=== PATIENT | female | born 1940 | race Caucasian/White ===

== ENCOUNTER 2016-11-07 23:44 | Inpatient (IN) | payer OTHER ==
[~2016-11-07] VITALS: Ht 157.5 cm; Wt 68.3 kg
[~2016-11-07 23:44] MED LIST: AMIO200T2 PO; AMIO200T46 PO; AMLO5TAB4 PO; ASPI81TA3 PO; ATOR20TA38 PO; HYDR-3498 PO; MECL25TA2 PO; Metformin Hcl PO; NATE60TA8 PO; PANT40TA3 PO; SITA100T8 PO; VALS160T20 PO; WARF5TAB72 PO; ZOLP5TAB6 PO
[2016-11-07 23:55] VITALS: Ht 157.5 cm; Wt 68.3 kg
[2016-11-08] MEDS ORDERED: ASPIRIN 81 MG TAB PO ONE (01:30)
[2016-11-08 02:15] LABS: ADD SCAN DIFF NO
[2016-11-08 02:19] LABS: BASOPHILS % 0.3 % (0.0-2.0); EOSINOPHILS # 0.3 10^3/ul (0.0-0.5); HEMATOCRIT 37.8 % (37.0-47.0); HEMOGLOBIN 12.8 g/dl (12.0-16.0); LYMPHOCYTES # 2.2 10^3/ul (0.8-2.9); MEAN CORPUSCULAR HEMOGLOBIN 30.7 pg (29.0-33.0); MEAN CORPUSCULAR HGB CONC 33.9 g/dl (32.0-37.0); MEAN CORPUSCULAR VOLUME 90.6 fl (82.0-101.0); MEAN PLATELET VOLUME 9.7 fl (7.4-10.4); MONOCYTE # 0.9 10^3/ul (0.3-0.9); NEUTROPHIL # 6.9 10^3/ul (1.6-7.5); NEUTROPHILS % 66.3 % (39.0-77.0); PLATELET COUNT 255 10^3/UL (140-415); RED BLOOD COUNT 4.17 10^6/ul (4.20-5.40); RED CELL DISTRIBUTION WIDTH 13.1 % (11.5-14.5); WHITE BLOOD COUNT 10.3 10^3/ul (4.8-10.8)
--- NOTE | 2016-11-08 02:26 | RADRPT ---
PROCEDURE: XR Chest. CLINICAL INDICATION: Chest Pain. TECHNIQUE: Single frontal view of the chest was obtained COMPARISON: 08/17/2014. FINDINGS: Cardiomegaly. Mild pulmonary vascular congestion. There is no pleural effusion or pneumothorax. IMPRESSION: Cardiomegaly and mild pulmonary vascular congestion. RPTAT: [facility] Physician [place] Date Time Electronically viewed and signed by Luis Segura Physician on 11/08/2016 02:25 RS/
[2016-11-08 02:36] LABS: POTASSIUM 4.6 mmol/L (3.5-5.1)
[2016-11-08 02:39] LABS: CREATININE 0.58 mg/dl (0.44-1.00)
[2016-11-08 02:40] LABS: CALCIUM 9.7 mg/dl (8.4-10.2)
[2016-11-08 02:51] LABS: TROPONIN-I 0.016 ng/ml (0.00-0.12)
[2016-11-08 03:14] LABS: INR 0.98
[2016-11-08 03:15] LABS: PARTIAL THROMBOPLASTIN TIME 32.8 Sec (25.0-35.0)
--- NOTE | 2016-11-08 05:43 | ERA ---
ER Documentation Chief Complaint Date/Time DATE: 11/08/16 TIME: 05:39 Chief Complaint pressure like chest pain since 2 hours ago HPI This 76-year-old female presents with left-sided pressure-like chest pain that began suddenly 2 hours ago. He was coming by some shortness of breath as well as mild nausea. She states that this feels like the pain she had when she had her heart attack. She took nitroglycerin which led to reduction in the pain. She states that her chest pain is now mild still pressure-like. ROS All systems reviewed and are negative except as per history of present illness. Medications Home Meds Active Scripts Amlodipine Besylate* (Norvasc*) 5 Mg Tablet, 5 MG PO BID for 30 Days, TAB Prov:JAMAL DIAL NP 08/11/14 Warfarin Sodium* (Coumadin*) 5 Mg Tablet, 5 MG PO DAILY for 5 Days, TAB Prov:JAMAL DIAL NP 08/11/14 Valsartan* (Diovan*) 160 Mg Tab, 160 MG PO DAILY for 30 Days Prov:JAMAL DIAL NP 08/11/14 Sitagliptin* (Januvia*) 100 Mg Tab, 100 MG PO AC BREAKFAST for 30 Days Prov:JAMAL DIAL NP 08/11/14 Nateglinide* (Starlix*) 60 Mg Tab, 60 MG PO AC MEALS for 30 Days Prov:JAMAL DIAL NP 08/11/14 [Metformin Hcl] 500 MG TAB No Conflict Check, 1000 MG PO WITH BREAKFAST DINNE for 30 Days, TAB Prov:JAMAL DIAL NP 08/11/14 Meclizine Hcl* (Antivert*) 25 Mg Tab, 25 MG PO TID Y for DIZZINESS, #20 Prov:JAMAL DIAL NP 08/11/14 Hydrocodone Bit/Acetaminophen (Anexsia 5-325 Mg Tablet) 1 Tab Tab, 1 TAB PO Q4H Y for PAIN LEVEL 4-6, #30 Prov:JAMAL DIAL NP 08/11/14 Atorvastatin Calcium* (Atorvastatin Calcium*) 20 Mg Tab, 40 MG PO HS for 30 Days Prov:JAMAL DIAL NP 08/11/14 Amiodarone Hcl* (Amiodarone Hcl*) 200 Mg Tablet, 200 MG PO DAILY for 30 Days, TAB Prov:JAMAL DIAL NP 08/11/14 Amiodarone Hcl* (Cordarone*) 200 Mg Tab, 200 MG PO BID for 3 Days, TAB Prov:JAMAL DIAL SUPPLY PERSON 08/11/14 Aspirin (Aspirin) 81 Mg Chew, 81 MG PO DAILY for 30 Days Prov:JAMAL DIAL SUPPLY PERSON 08/11/14 Reported Medications Zolpidem Tartrate* (Zolpidem Tartrate*) 5 Mg Tablet, 5 MG PO HS Y, TAB 07/26/14 Pantoprazole* (Protonix*) 40 Mg Tablet.dr, 40 MG PO DAILY, TAB 07/26/14 Allergies Allergies: Coded Allergies: No Known Allergy (Unverified , 08/10/14) PMhx/Soc History of Surgery: Yes (s/p CABG) Anesthesia Reaction: No Hx Neurological Disorder: No Hx Respiratory Disorders: No Hx Cardiac Disorders: Yes Hx Psychiatric Problems: No Hx Miscellaneous Medical Probl: Yes (suspected vertigo, atrial fibrillation, HTN, DM, dyslipidemia, [place], diabetes) Hx Alcohol Use: No Hx Substance Use: No Hx Tobacco Use: No Smoking Status: Never smoker Physical Exam Vitals Vital Signs Date Time Temp Pulse Resp B/P Pulse Ox O2 Delivery O2 Flow Rate FiO2 11/08/16 05:27 98.4 58 16 159/72 98 Room Air 11/08/16 04:38 56 16 162/75 97 Room Air 11/08/16 03:00 98.2 60 16 152/77 100 Room Air 11/08/16 01:19 98.2 59 16 157/78 100 Room Air 11/07/16 23:55 98.6 75 20 198/79 99 Physical Exam Const: [] No distress Head: Atraumatic Eyes: Normal Conjunctiva ENT: Normal External Ears, Nose and Mouth. Neck: Full range of motion..~ No meningismus. Resp: Clear to auscultation bilaterally Cardio: Regular rate and rhythm, no murmurs Abd: Soft, non tender, non distended. Normal bowel sounds Skin: No petechiae or rashes Ext: No cyanosis, or edema Neur: Awake and alert and oriented 3, no focal deficits Psych: Normal Mood and Affect Result Diagram: 11/08/16 0130 11/08/16 0130 Results 24 hrs Laboratory Tests Test 11/08/16 01:30 11/08/16 02:36 Anion Gap 20 Basophils # 0.010^3/ul Basophils % 0.3% Blood Urea Nitrogen 12mg/dl Calcium Level 9.7mg/dl Carbon Dioxide Level 24mmol/L Chloride Level 93mmol/L Creatinine 0.58mg/dl Eosinophils # 0.310^3/ul Eosinophils % 3.0% Glucose Level 135mg/dl Hematocrit 37.8% Hemoglobin 12.8g/dl Lymphocytes # 2.210^3/ul Lymphocytes % 21.0% Mean Corpuscular Hemoglobin 30.7pg Mean Corpuscular Hemoglobin Concent 33.9g/dl Mean Corpuscular Volume 90.6fl Mean Platelet Volume 9.7fl Monocytes # 0.910^3/ul Monocytes % 9.0% Neutrophils # 6.910^3/ul Neutrophils % 66.3% Nucleated Red Blood Cells # 0.010^3/ul Nucleated Red Blood Cells % 0.0/100WBC Platelet Count 84563^3/UL Potassium Level 4.6mmol/L Red Blood Count 4.1710^6/ul Red Cell Distribution Width 13.1% Sodium Level 132mmol/L Troponin I 0.016ng/ml White Blood Count 10.310^3/ul Activated Partial Thromboplast Time 32.8Sec INR International Normalized Ratio 0.98 Prothrombin Time 13.0Sec Prothrombin Time Ratio 1.0 Current Medications Medications (Trade) Dose Ordered Sig/Juliette Route PRN Reason Start Time Stop Time Status Last Admin Dose Admin Aspirin (Aspirin) 324 mg ONCE ONCE PO 11/08/16 01:30 11/08/16 01:31 DC 11/08/16 01:39 Procedures/MDM Acute chest pain that feels like prior heart attack. Patient with multiple risk factors for acute coronary syndrome. He was given aspirin emergency room as well. She has ongoing chest pain although she said it is greatly improved from before she took the nitroglycerin. She will be admitted for further trending of troponins and cardiac monitoring as well as cardiac consult and any advanced testing may be necessary. Patient Dr. Bard bravo was admitted the patient before for admission. Still waiting content architect back for admission. EKG interpretation: Normal sinus rhythm, rate of 61, left axis deviation, no ST- T wave changes concerning for acute ischemia monitor and storage bin tender interpretation: Normal sinus rhythm without arrhythmia Chest x-ray interpretation: Cardiomegaly and mild pulmonary vascular congestion , no pneumothorax, no infiltrates, no fractures. Departure Diagnosis: Primary Impression: Chest pain Additional Impression: Hyponatremia Condition: Stable BREN EARLY DO Nov 08, 2016 05:43
[2016-11-08] MEDS ORDERED: ACETAMINOPHEN 325 MG TAB PO PRN (06:00)
[2016-11-08] MEDS ORDERED: ONDANSETRON 4 MG INJ IV PRN (06:00)
[2016-11-08 08:37] LABS: CREATINE KINASE 46 IU/L (23-200)
[2016-11-08 08:47] LABS: CK-MB 0.53 ng/ml (0.0-2.4)
[2016-11-08 08:51] LABS: TROPONIN-I < 0.012 ng/ml (0.00-0.12)
[2016-11-08 12:24] VITALS: TEMP 97.7
[2016-11-08 13:30] VITALS: BP 180/72; PULSE 67; RESP 16
[2016-11-08 16:00] VITALS: PULSE 59
[2016-11-08] MEDS ORDERED: HYDROCODONE/APAP (5/325) TAB PO PRN (16:00)
[2016-11-08] MEDS ORDERED: GLUCOSE GEL 15 GRAM TUBE PO PRN ×2 (16:30)
[2016-11-08] MEDS ORDERED: GLUCOSE GEL 15 GRAM TUBE BUCCAL PRN (16:30)
[2016-11-08] MEDS ORDERED: hydrALAzine 20 MG INJ IV PRN (16:30)
[2016-11-08] MEDS ORDERED: GLUCAGON 1 MG INJ IM PRN (16:30)
[2016-11-08] MEDS ORDERED: DEXTROSE 50% 50 ML SYRINGE IV PRN ×2 (16:30)
[2016-11-08] MEDS: metFORMIN 500 MG TAB PO SCH (17:16)
[2016-11-08] MEDS: ENOXAPARIN 40 MG/0.4 ML SYG SC SCH (17:22)
[2016-11-08 17:37] LABS: CREATINE KINASE 43 IU/L (23-200)
[2016-11-08 17:45] LABS: CK-MB 0.45 ng/ml (0.0-2.4)
[2016-11-08] MEDS: NATEGLINIDE 60 MG TAB PO SCH (17:52)
[2016-11-08 17:55] LABS: TROPONIN-I < 0.012 ng/ml (0.00-0.12)
[2016-11-08] MEDS: INSULIN ASPART [NOVOLOG] 3 ML PEN SC SCH ×2 (17:55→21:29)
--- NOTE | 2016-11-08 19:20 | CONS ---
Date/Time of Note Date/Time of Note DATE: 11/08/16 TIME: 19:17 Assessment/Plan Assessment/Plan Problems: (1) Hyponatremia Status: Acute (2) Chest pain Status: Acute Additional Assessment/Plan Patient with CP R/O ACS trop neg x3 EKG non ischemic Likey non cardiac pain Out pt stress test pt will ./fu with me in office. 2D echo pending but would not stop her D/C Plan for GERD treatment. d/w pt and son. Consultation Date/Type/Reason Admit Date/Time Nov 08, 2016 at 06:00 Date of Consultation: Nov 08, 2016 Type of Consultation: Cardiology Reason for Consultation CP Hx of Present Illness Patient is 76 year old F with PMH of Mi, HTN, HLD who came in with Cp symptoms. as per patient she felt burning like pain and non radiating and no nausea or vmiting or SOB associated with it. no Pain at this time. felt better with nexium. Constitutional: no complaints Eyes: no complaints ENT: no complaints Past Medical History Medical History: angina Social History Smoking Status: Never smoker Exam/Review of Systems Vital Signs Vitals Vital Signs Date Time Temp Pulse Resp B/P Pulse Ox O2 Delivery O2 Flow Rate FiO2 11/08/16 16:00 59 11/08/16 12:24 97.7 17 154/59 100 Room Air Exam Constitutional: alert, oriented, well developed Psych: no complaints Head: normocephalic Eyes: nl conjunctiva ENMT: nl external ears & nose Neck: supple Respiratory: clear to auscultation Cardiovascular: regular rate and rhythm Gastrointestinal: nl liver, spleen, soft Musculoskeletal: nl extremities to inspection Results Result Diagram: 11/08/16 0130 11/08/16 0130 Results 24 hrs Laboratory Tests Test 11/08/16 01:30 11/08/16 02:36 11/08/16 05:28 11/08/16 08:12 Anion Gap 20 H Basophils # 0.0 Basophils % 0.3 Blood Urea Nitrogen 12 Calcium Level 9.7 Carbon Dioxide Level 24 Chloride Level 93 L Creatinine 0.58 Eosinophils # 0.3 Eosinophils % 3.0 Glucose Level 135 Hematocrit 37.8 Hemoglobin 12.8 Lymphocytes # 2.2 Lymphocytes % 21.0 Mean Corpuscular Hemoglobin 30.7 Mean Corpuscular Hemoglobin Concent 33.9 Mean Corpuscular Volume 90.6 Mean Platelet Volume 9.7 # Monocytes # 0.9 Monocytes % 9.0 Neutrophils # 6.9 Neutrophils % 66.3 Nucleated Red Blood Cells # 0.0 Nucleated Red Blood Cells % 0.0 Platelet Count 255 Potassium Level 4.6 Red Blood Count 4.17 L Red Cell Distribution Width 13.1 Sodium Level 132 L Troponin I 0.016 < 0.012 < 0.012 White Blood Count 10.3 Activated Partial Thromboplast Time 32.8 INR International Normalized Ratio 0.98 Prothrombin Time 13.0 Prothrombin Time Ratio 1.0 Creatine Kinase 46 Creatine Kinase Index 1.2 Creatinine Kinase MB (Mass) 0.53 Test 11/08/16 12:20 11/08/16 17:05 11/08/16 17:46 Bedside Glucose 137 221 H Creatine Kinase 43 Creatine Kinase Index 1.0 Creatinine Kinase MB (Mass) 0.45 Troponin I < 0.012 Medications Medications Current Medications Amiodarone HCl (Cordarone) 200 mg DAILY PO ; Start 11/09/16 at 09:00 Amlodipine Besylate (Norvasc) 5 mg BID PO ; Start 11/08/16 at 21:00 Atorvastatin Calcium (Lipitor) 40 mg HS PO ; Start 11/08/16 at 21:00 Acetaminophen/ Hydrocodone Bitart ([place] (5/325)) 1 tab Q4H PRN PO PAIN LEVEL 4 -6; Start 11/08/16 at 16:00 Pantoprazole (Protonix Tab) 40 mg DAILY PO ; Start 11/09/16 at 09:00 Valsartan (Diovan) 160 mg DAILY PO ; Start 11/09/16 at 09:00 Linagliptin (Tradjenta) 5 mg DAILY PO ; Start 11/09/16 at 09:00 Diagnostic Test (Pha) (Accucheck) 1 ea 02 XX ; Start 11/09/16 at 02:00 Enoxaparin Sodium (Lovenox) 40 mg DAILY SC Last administered on 11/08/16t 17:22 ; Admin Dose 40 MG; Start 11/08/16 at 16:30 Miscellaneous Information 1 ea NOTE XX ; Start 11/08/16 at 16:30 Glucose (Glutose) 15 gm Q15M PRN PO DECREASED GLUCOSE; Start 11/08/16 at 16:30 Glucose (Glutose) 22.5 gm Q15M PRN PO DECREASED GLUCOSE; Start 11/08/16 at 16:30 Dextrose (D50w Syringe) 25 ml Q15M PRN IV DECREASED GLUCOSE; Start 11/08/16 at 16:30 Dextrose (D50w Syringe) 50 ml Q15M PRN IV DECREASED GLUCOSE; Start 11/08/16 at 16:30 Glucagon (Glucagen) 1 mg Q15M PRN IM DECREASED GLUCOSE; Start 11/08/16 at 16:30 Glucose (Glutose) 15 gm Q15M PRN BUCCAL DECREASED GLUCOSE; Start 11/08/16 at 16: 30 Hydralazine HCl (Apresoline) 10 mg Q6H PRN IV Systolic BP >160 Last administered on 11/08/16t 17:16; Admin Dose 10 MG; Start 11/08/16 at 16:30 ANGEL RM MD Nov 08, 2016 19:20
[2016-11-08 19:56] VITALS: BP 142/65; RESP 16
[2016-11-08 20:21] VITALS: PULSE 68
--- NOTE | 2016-11-08 20:48 | HP ---
Date/Time of Note Date/Time of Note DATE: 11/08/16 TIME: 20:43 Assessment/Plan VTE Prophylaxis VTE Prophylaxis Intervention: LMWH, other Lines/Catheters IV Catheter Type (from Nrsg): Saline Lock Urinary Cath still in place: No Assessment/Plan Assessment/Plan - Chest pain r/o Acute Coronary Syndrome, - Cardiac consult appreciated- Dr Reyes notified - Echo ordered - Admit to Tele monitoring - SP CABG= cardiology consult appreciated - Suspected vertigo- no dizziness at present - Atrial fibrillation- on Amiodarone - HX FL- no chest pain at present - cardiology appreciated - Diabetes mellitus. - Glycemic control - metformin, Starlix and Tradjenta. - Hypertension- Hydralazine 10 mg IV prn for SBP >160 -Continue Norvasc - Dyslipidemia. Continue Lipitor. - Hyponatremia- cont to monitor. am labs - Lovenox for deep venous thrombosis prophylaxis. - Protonix for GI prophylaxis Further recommendations depend on patient's hospital course DW Dr Luis/staff HPI/ROS Admit Date/Time Admit Date/Time Nov 08, 2016 at 06:00 Hx of Present Illness pressure like chest pain x 1 day HPI This is a 76-year-old female with history of CABG, suspected vertigo, atrial fibrillation, HTN, DM, dyslipidemia, [place], diabetes, came to ER today with left- sided pressure-like chest pain that began suddenly 2 hours ago with some shortness of breath and mild nausea. Per patient , She stated she had experienced same pain when she had her heart attack in the past. She took nitroglycerin with good results. She denies any chest pain, nausea. shortness of breath, palpitations, dizziness, Headache, fever, chills, focal weakness/ numbness,abdominal pain, nausea.vomitting. NAD noted during exam, cooperative for exam. Patient had history of FL, has multiple risk factors for acute coronary syndrome- Patient was given Aspirin in ER. And patient got admitted for trending of troponins and cardiac monitoring under Dr Luis. ROS All systems reviewed and are negative except as per history of present illness. Medications Home Meds Active Scripts Amlodipine Besylate* (Norvasc*) 5 Mg Tablet, 5 MG PO BID for 30 Days, TAB Prov:JAMAL DIAL NP 08/11/14 Warfarin Sodium* (Coumadin*) 5 Mg Tablet, 5 MG PO DAILY for 5 Days, TAB Prov:JAMAL DIAL NP 08/11/14 Valsartan* (Diovan*) 160 Mg Tab, 160 MG PO DAILY for 30 Days Prov:JAMAL DIAL NP 08/11/14 Sitagliptin* (Januvia*) 100 Mg Tab, 100 MG PO AC BREAKFAST for 30 Days Prov:JAMAL DIAL NP 08/11/14 Nateglinide* (Starlix*) 60 Mg Tab, 60 MG PO AC MEALS for 30 Days Prov:JAMAL DIAL NP 08/11/14 [Metformin Hcl] 500 MG TAB No Conflict Check, 1000 MG PO WITH BREAKFAST DINNE for 30 Days, TAB Prov:JAMAL DIAL NP 08/11/14 Meclizine Hcl* (Antivert*) 25 Mg Tab, 25 MG PO TID Y for DIZZINESS, #20 Prov:JAMAL DIAL NP 08/11/14 Hydrocodone Bit/Acetaminophen (Anexsia 5-325 Mg Tablet) 1 Tab Tab, 1 TAB PO Q4H Y for PAIN LEVEL 4-6, #30 Prov:JAMAL DIAL NP 08/11/14 Atorvastatin Calcium* (Atorvastatin Calcium*) 20 Mg Tab, 40 MG PO HS for 30 Days Prov:JAMAL DIAL NP 08/11/14 Amiodarone Hcl* (Amiodarone Hcl*) 200 Mg Tablet, 200 MG PO DAILY for 30 Days, TAB Prov:JAMAL DIAL NP 08/11/14 Amiodarone Hcl* (Cordarone*) 200 Mg Tab, 200 MG PO BID for 3 Days, TAB Prov:JAMAL DIAL NP 08/11/14 Aspirin (Aspirin) 81 Mg Chew, 81 MG PO DAILY for 30 Days Prov:JAMAL DIAL NP 08/11/14 Reported Medications Zolpidem Tartrate* (Zolpidem Tartrate*) 5 Mg Tablet, 5 MG PO HS Y, TAB 07/26/14 Pantoprazole* (Protonix*) 40 Mg Tablet.dr, 40 MG PO DAILY, TAB 07/26/14 Allergies Allergies: Coded Allergies: No Known Allergy (Unverified , 08/10/14) ROS Constitutional: improved Eyes: no complaints ENT: no complaints Respiratory: no complaints Cardiovascular: no complaints Gastrointestinal: no complaints Genitourinary: no complaints Musculoskeletal: no complaints Neurologic: no complaints Endocrine: no complaints Lymphatic: no complaints Psychological: no complaints PMH/Family/Social Past Medical History History of Surgery: Yes (s/p CABG) Anesthesia Reaction: No Hx Neurological Disorder: No Hx Respiratory Disorders: No Hx Cardiac Disorders: Yes Hx Psychiatric Problems: No Hx Miscellaneous Medical Probl: Yes (suspected vertigo, atrial fibrillation, HTN, DM, dyslipidemia, [place], diabetes) Hx Alcohol Use: No Hx Substance Use: No Hx Tobacco Use: No Smoking Status: Never smoker Medical History: angina Past Surgical History SP CABG Social History Smoking Status: Never smoker Exam/Review of Systems Vital Signs Vitals Vital Signs Date Time Temp Pulse Resp B/P Pulse Ox O2 Delivery O2 Flow Rate FiO2 11/08/16 20:21 68 11/08/16 19:56 98.2 16 142/65 98 11/08/16 13:30 Room Air Exam Constitutional: alert, oriented, well developed Psych: nl mood/affect Head: atraumatic, normocephalic Eyes: EOMI, PERRL, nl sclera ENMT: nl external ears & nose Neck: non-tender Respiratory: clear to auscultation Cardiovascular: nl pulses Gastrointestinal: non-tender, soft Musculoskeletal: nl extremities to inspection Extremities: normal pulses Neurological: nl mental status, nl speech Skin: nl turgor Lymph: nontender Labs Result Diagram: 11/08/1612911/08/16 0130 Medications Medications Current Medications Amiodarone HCl (Cordarone) 200 mg DAILY PO ; Start 11/09/16 at 09:00 Amlodipine Besylate (Norvasc) 5 mg BID PO ; Start 11/08/16 at 21:00 Atorvastatin Calcium (Lipitor) 40 mg HS PO ; Start 11/08/16 at 21:00 Acetaminophen/ Hydrocodone Bitart ([place] (5/325)) 1 tab Q4H PRN PO PAIN LEVEL 4 -6; Start 11/08/16 at 16:00 Pantoprazole (Protonix Tab) 40 mg DAILY PO ; Start 11/09/16 at 09:00 Valsartan (Diovan) 160 mg DAILY PO ; Start 11/09/16 at 09:00 Linagliptin (Tradjenta) 5 mg DAILY PO ; Start 11/09/16 at 09:00 Diagnostic Test (Pha) (Accucheck) 1 ea 02 XX ; Start 11/09/16 at 02:00 Enoxaparin Sodium (Lovenox) 40 mg DAILY SC Last administered on 11/08/16 17:22 ; Admin Dose 40 MG; Start 11/08/16 at 16:30 Miscellaneous Information 1 ea NOTE XX ; Start 11/08/16 at 16:30 Glucose (Glutose) 15 gm Q15M PRN PO DECREASED GLUCOSE; Start 11/08/16 at 16:30 Glucose (Glutose) 22.5 gm Q15M PRN PO DECREASED GLUCOSE; Start 11/08/16 at 16:30 Dextrose (D50w Syringe) 25 ml Q15M PRN IV DECREASED GLUCOSE; Start 11/08/16 at 16:30 Dextrose (D50w Syringe) 50 ml Q15M PRN IV DECREASED GLUCOSE; Start 11/08/16 at 16:30 Glucagon (Glucagen) 1 mg Q15M PRN IM DECREASED GLUCOSE; Start 11/08/16 at 16:30 Glucose (Glutose) 15 gm Q15M PRN BUCCAL DECREASED GLUCOSE; Start 11/08/16 at 16: 30 Hydralazine HCl (Apresoline) 10 mg Q6H PRN IV Systolic BP >160 Last administered on 11/08/16 17:16; Admin Dose 10 MG; Start 11/08/16 at 16:30 Influenza Virus Vaccine (Fluzone) 0.5 ml ONCE ONCE IM* ; Start 11/09/16 at 09:00 ; Stop 11/09/16 at 09:01 Procedures Procedures 1. EKG interpretation: Normal sinus rhythm, rate of 61, left axis deviation, no ST-T wave changes concerning for acute ischemia restaurant service manager interpretation: Normal sinus rhythm without arrhythmia 2, Chest x-ray interpretation: Cardiomegaly and mild pulmonary vascular congestion, no pneumothorax, no infiltrates, no fractures. YAQUELIN JOHNS Nov 08, 2016 20:48
[2016-11-08] MEDS: ATORVASTATIN 40 MG TAB PO SCH (21:01)
[2016-11-08] MEDS: AMLODIPINE 5 MG TAB PO SCH (21:02)
[2016-11-08 23:54] VITALS: BP 110/56; RESP 46
[2016-11-09] VITALS (14 sets, daily range): BP systolic 96–149; BP diastolic 58–69; PULSE 59–67; RESP 19–20
[2016-11-09] MEDS: ACCUCHECK XX SCH (02:00)
[2016-11-09 06:55] LABS: ADD SCAN DIFF NO
[2016-11-09 06:57] LABS: BASOPHILS % 0.3 % (0.0-2.0); EOSINOPHILS # 0.2 10^3/ul (0.0-0.5); EOSINOPHILS % 2.9 % (0.0-7.0); HEMATOCRIT 33.8 % (37.0-47.0); HEMOGLOBIN 11.5 g/dl (12.0-16.0); LYMPHOCYTES # 1.9 10^3/ul (0.8-2.9); LYMPHOCYTES % 26.3 % (15.0-51.0); MEAN CORPUSCULAR HEMOGLOBIN 31.1 pg (29.0-33.0); MEAN CORPUSCULAR VOLUME 91.4 fl (82.0-101.0); MEAN PLATELET VOLUME 9.7 fl (7.4-10.4); MONOCYTE # 0.9 10^3/ul (0.3-0.9); MONOCYTES % 12.5 % (0.0-11.0); NEUTROPHIL # 4.2 10^3/ul (1.6-7.5); NEUTROPHILS % 57.7 % (39.0-77.0); PLATELET COUNT 235 10^3/UL (140-415); RED CELL DISTRIBUTION WIDTH 13.5 % (11.5-14.5); WHITE BLOOD COUNT 7.3 10^3/ul (4.8-10.8)
[2016-11-09 07:15] LABS: POTASSIUM 4.4 mmol/L (3.5-5.1)
[2016-11-09 07:18] LABS: CREATININE 0.6 mg/dl (0.44-1.00)
[2016-11-09 07:19] LABS: CALCIUM 8.9 mg/dl (8.4-10.2); MAGNESIUM 1.8 mg/dl (1.7-2.5)
[2016-11-09] MEDS ORDERED: INFLUENZA VIRUS VACCINE 0.5 ML (DISPENSING) IM* ONE (09:00)
[2016-11-09] MEDS: PANTOPRAZOLE (EC) 40 MG TAB PO SCH (09:13)
[2016-11-09] MEDS: AMLODIPINE 5 MG TAB PO SCH ×2 (09:14→21:20)
[2016-11-09] MEDS: NATEGLINIDE 60 MG TAB PO SCH ×3 (09:14→17:34)
[2016-11-09] MEDS: LINAGLIPTIN 5 MG TABLET PO SCH (09:14)
[2016-11-09] MEDS: AMIODARONE 200 MG TAB PO SCH (09:14)
[2016-11-09] MEDS: VALSARTAN 160 MG TAB PO SCH (09:14)
[2016-11-09] MEDS: metFORMIN 500 MG TAB PO SCH ×2 (09:14→17:34)
[2016-11-09] MEDS: ENOXAPARIN 40 MG/0.4 ML SYG SC SCH (09:16)
[2016-11-09] MEDS: INSULIN ASPART [NOVOLOG] 3 ML PEN SC SCH ×4 (09:22→21:00)
--- NOTE | 2016-11-09 20:12 | CONS ---
Date/Time of Note Date/Time of Note DATE: 11/09/16 TIME: 20:11 Consult Date/Type/Reason Admit Date/Time Nov 08, 2016 at 06:00 Initial Consult Date 11/08/16 Type of Consultation: Cardiology Objective Vital Signs Date Time Temp Pulse Resp B/P Pulse Ox O2 Delivery O2 Flow Rate FiO2 11/09/16 16:37 66 11/09/16 15:27 98.1 19 149/67 98 11/08/16 13:30 Room Air Intake and Output 11/08/16 11/08/16 11/09/16 15:00 23:00 07:00 Intake Total 500 ml 460 ml Output Total 425 ml Balance -425 ml 500 ml 460 ml Results/Medications Result Diagram: 11/09/16 0611/09/16 0605 Results 24 hrs Laboratory Tests Test 11/08/16 20:59 11/09/16 02:42 11/09/16 06:05 11/09/16 07:42 Bedside Glucose 216 148 212 Anion Gap 14 Basophils # 0.0 Basophils % 0.3 Blood Urea Nitrogen 12 Calcium Level 8.9 Carbon Dioxide Level 25 Chloride Level 102 Creatinine 0.60 Eosinophils # 0.2 Eosinophils % 2.9 Glucose Level 179 Hematocrit 33.8 L Hemoglobin 11.5 L Lymphocytes # 1.9 Lymphocytes % 26.3 Magnesium Level 1.8 Mean Corpuscular Hemoglobin 31.1 Mean Corpuscular Hemoglobin Concent 34.0 Mean Corpuscular Volume 91.4 Mean Platelet Volume 9.7 Monocytes # 0.9 Monocytes % 12.5 H Neutrophils # 4.2 Neutrophils % 57.7 Nucleated Red Blood Cells # 0.0 Nucleated Red Blood Cells % 0.0 Platelet Count 235 Potassium Level 4.4 Red Blood Count 3.70 L Red Cell Distribution Width 13.5 Sodium Level 137 White Blood Count 7.3 # Test 11/09/16 11:23 11/09/16 17:28 Bedside Glucose 230 H 98 Medications Current Medications Amiodarone HCl (Cordarone) 200 mg DAILY PO Last administered on 11/09/16 09:14 ; Admin Dose 200 MG; Start 11/09/16 at 09:00 Amlodipine Besylate (Norvasc) 5 mg BID PO Last administered on 11/09/16 09:14; Admin Dose 5 MG; Start 11/08/16 at 21:00 Atorvastatin Calcium (Lipitor) 40 mg HS PO Last administered on 11/08/16 21:01 ; Admin Dose 40 MG; Start 11/08/16 at 21:00 Acetaminophen/ Hydrocodone Bitart ([place] (5/325)) 1 tab Q4H PRN PO PAIN LEVEL 4 -6 Last administered on 11/09/16 17:40; Admin Dose 1 TAB; Start 11/08/16 at 16:00 Pantoprazole (Protonix Tab) 40 mg DAILY PO Last administered on 11/09/16 09:13 ; Admin Dose 40 MG; Start 11/09/16 at 09:00 Valsartan (Diovan) 160 mg DAILY PO Last administered on 11/09/16 09:14; Admin Dose 160 MG; Start 11/09/16 at 09:00 Linagliptin (Tradjenta) 5 mg DAILY PO Last administered on 11/09/16 09:14; Admin Dose 5 MG; Start 11/09/16 at 09:00 Diagnostic Test (Pha) (Accucheck) 1 ea 02 XX ; Start 11/09/16 at 02:00 Enoxaparin Sodium (Lovenox) 40 mg DAILY SC Last administered on 11/09/16 09:16 ; Admin Dose 40 MG; Start 11/08/16 at 16:30 Miscellaneous Information 1 ea NOTE XX ; Start 11/08/16 at 16:30 Glucose (Glutose) 15 gm Q15M PRN PO DECREASED GLUCOSE; Start 11/08/16 at 16:30 Glucose (Glutose) 22.5 gm Q15M PRN PO DECREASED GLUCOSE; Start 11/08/16 at 16:30 Dextrose (D50w Syringe) 25 ml Q15M PRN IV DECREASED GLUCOSE; Start 11/08/16 at 16:30 Dextrose (D50w Syringe) 50 ml Q15M PRN IV DECREASED GLUCOSE; Start 11/08/16 at 16:30 Glucagon (Glucagen) 1 mg Q15M PRN IM DECREASED GLUCOSE; Start 11/08/16 at 16:30 Glucose (Glutose) 15 gm Q15M PRN BUCCAL DECREASED GLUCOSE; Start 11/08/16 at 16: 30 Hydralazine HCl (Apresoline) 10 mg Q6H PRN IV Systolic BP >160 Last administered on 11/08/16 17:16; Admin Dose 10 MG; Start 11/08/16 at 16:30 Assessment/Plan Chief Complaint/Hosp Course Patient is 76 year old F with PMH of Mi, HTN, HLD who came in with Cp symptoms. as per patient she felt burning like pain and non radiating and no nausea or vmiting or SOB associated with it. no Pain at this time. felt better with nexium. Problems: (1) Hyponatremia (2) Chest pain Additional Assessment/Plan Cardiac rai pt stable for d/c home Plan to f/u out pt ANGEL RM MD Nov 09, 2016 20:12
--- NOTE | 2016-11-09 20:15 | RADRPT ---
Echocardiogram Report Patient Name: JAMAR MARISCAL Gender: Female Date: 1940 Study Date: 09-Nov-2016 Medication Administration Professional: Rachel Flowers [facility] Location: [id number] Ref. Physician: YAQUELIN JOHNS Quality: Technically Difficult Study Procedures: Transthoracic echocardiogram with complete 2D, M-Mode, and doppler examination. Indications: Chest Pain. 2D/M Mode Doppler Measurement Value Normal Ranges Measurement Value Normal Ranges LVIDd 2D 4.3 3.5 - 5.6 cm AV Peak Maxx 1.9 m/sec LVIDs 2D 3.0 2.1 - 4.1 cm AV Peak PG 15.1 mmHg LVPWd 2D 0.8 0.6 - 1.1 cm LVOT Peak Maxx 1.1 m/sec IVSd 2D 0.7 0.6 - 1.1 cm LVOT Peak PG 5.0 mmHg AoR Diam 2D 2.5 2.0 - 3.7 cm MV E Peak Maxx 1.1 m/sec EDV 2D 85.0 cm3 MV A Peak Maxx 0.4 m/sec ESV 2D 26.8 cm3 MV E/A 2.5 LA Dimen 2D 3.5 2.3 - 4.0 cm MV Decel Time 185 msec MV Decel [place] 6 MV E/A 2.5 TR Peak Maxx 3.1 m/sec TR Peak PG 37.9 mmHg RVSP 41.0 mmHg Findings Left Ventricle: Normal left ventricular systolic function. Normal left ventricular cavity size. Normal left ventricular wall thickness. Ejection fraction is visually estimated at 60 %. Right Ventricle: Normal right ventricular size. Normal right ventricular systolic function. Left Atrium: The left atrium is normal in size. Right Atrium: The right atrium is normal in size. Mitral Valve: Mitral valve leaflets appear mildly thickened. Mild mitral annular calcification. Trace mitral regurgitation. Aortic Valve: No significant aortic stenosis or insufficiency. Aortic cusps appear mildly calcified. Tricuspid Valve: Estimated peak PA systolic pressure 41 mmHg. There is mild tricuspid regurgitation. Pulmonic Valve: Normal pulmonic valve appearance. There is trace pulmonic regurgitation. Pericardium: Normal pericardium with no significant pericardial effusion. Aorta: Normal aortic root. IVC: Normal size and normal respiratory collapse consistent with normal right atrial pressure. Conclusions Normal left ventricular systolic function. Normal left ventricular cavity size. Normal left ventricular wall thickness. Ejection fraction is visually estimated at 60 %. Mitral valve leaflets appear mildly thickened. Mild mitral annular calcification. Trace mitral regurgitation. No significant aortic stenosis or insufficiency. Aortic cusps appear mildly calcified. Estimated peak PA systolic pressure 41 mmHg. There is mild tricuspid regurgitation. Electronically Signed By: Camden Burkett 09-Nov-2016 20:15:21 -0800 Patient Name: JAMAR MARISCAL Study Date: 09-Nov-2016 [id number]
[2016-11-09] MEDS: ATORVASTATIN 40 MG TAB PO SCH (21:20)
[2016-11-10] VITALS (8 sets, daily range): BP systolic 125–133; BP diastolic 56–63; PULSE 59–68; RESP 18–20
[2016-11-10] MEDS: ACCUCHECK XX SCH (02:00)
[2016-11-10] MEDS: INSULIN ASPART [NOVOLOG] 3 ML PEN SC SCH ×2 (07:55→11:59)
[2016-11-10] MEDS: VALSARTAN 160 MG TAB PO SCH (08:34)
[2016-11-10] MEDS: metFORMIN 500 MG TAB PO SCH (08:35)
[2016-11-10] MEDS: NATEGLINIDE 60 MG TAB PO SCH ×2 (08:35→11:53)
[2016-11-10] MEDS: PANTOPRAZOLE (EC) 40 MG TAB PO SCH (08:35)
[2016-11-10] MEDS: AMIODARONE 200 MG TAB PO SCH (08:35)
[2016-11-10] MEDS: AMLODIPINE 5 MG TAB PO SCH (08:35)
[2016-11-10] MEDS: LINAGLIPTIN 5 MG TABLET PO SCH (08:35)
[2016-11-10] MEDS: ENOXAPARIN 40 MG/0.4 ML SYG SC SCH (08:40)
--- NOTE | 2016-11-10 12:15 | DS ---
Date/Time of Note Date/Time of Note DATE: 11/10/16 TIME: 12:14 Discharge Summary Admission/Discharge Info Admit Date/Time Nov 08, 2016 at 06:00 Discharge Date/Time 11/10/16 Final Diagnosis 1) chest pain 2) hypertension 3) diabetes Consults cardiology Hx of Present Illness pressure like chest pain x 1 day HPI This 76-year-old female presents with left-sided pressure-like chest pain that began suddenly 2 hours ago. He was coming by some shortness of breath as well as mild nausea. She states that this feels like the pain she had when she had her heart attack. She took nitroglycerin which led to reduction in the pain. She states that her chest pain is now mild still pressure-like. ROS All systems reviewed and are negative except as per history of present illness. Medications Home Meds Active Scripts Amlodipine Besylate* (Norvasc*) 5 Mg Tablet, 5 MG PO BID for 30 Days, TAB Prov:JAMAL DIAL NP 08/11/14 Warfarin Sodium* (Coumadin*) 5 Mg Tablet, 5 MG PO DAILY for 5 Days, TAB Prov:JAMAL DIAL NP 08/11/14 Valsartan* (Diovan*) 160 Mg Tab, 160 MG PO DAILY for 30 Days Prov:JAMAL DIAL NP 08/11/14 Sitagliptin* (Januvia*) 100 Mg Tab, 100 MG PO AC BREAKFAST for 30 Days Prov:JAMAL DIAL NP 08/11/14 Nateglinide* (Starlix*) 60 Mg Tab, 60 MG PO AC MEALS for 30 Days Prov:JAMAL DIAL NP 08/11/14 [Metformin Hcl] 500 MG TAB No Conflict Check, 1000 MG PO WITH BREAKFAST DINNE for 30 Days, TAB Prov:JAMAL DIAL NP 08/11/14 Meclizine Hcl* (Antivert*) 25 Mg Tab, 25 MG PO TID Y for DIZZINESS, #20 Prov:JAMAL DIAL NP 08/11/14 Hydrocodone Bit/Acetaminophen (Anexsia 5-325 Mg Tablet) 1 Tab Tab, 1 TAB PO Q4H Y for PAIN LEVEL 4-6, #30 Prov:JAMAL DIAL NP 08/11/14 Atorvastatin Calcium* (Atorvastatin Calcium*) 20 Mg Tab, 40 MG PO HS for 30 Days Prov:JAMAL DIAL NP 08/11/14 Amiodarone Hcl* (Amiodarone Hcl*) 200 Mg Tablet, 200 MG PO DAILY for 30 Days, TAB Prov:JAMAL DIAL NP 08/11/14 Amiodarone Hcl* (Cordarone*) 200 Mg Tab, 200 MG PO BID for 3 Days, TAB Prov:JAMAL DIAL NP 08/11/14 Aspirin (Aspirin) 81 Mg Chew, 81 MG PO DAILY for 30 Days Prov:JAMAL DIAL NP 08/11/14 Reported Medications Zolpidem Tartrate* (Zolpidem Tartrate*) 5 Mg Tablet, 5 MG PO HS Y, TAB 07/26/14 Pantoprazole* (Protonix*) 40 Mg Tablet.dr, 40 MG PO DAILY, TAB 07/26/14 Allergies Allergies: Coded Allergies: No Known Allergy (Unverified , 08/10/14) Hospital Course Patient is 76 year old F with PMH of Mi, HTN, HLD who came in with Cp symptoms. as per patient she felt burning like pain and non radiating and no nausea or vmiting or SOB associated with it. no Pain at this time. felt better with nexium. Patient was seen by cardiology and judged not to have acute coronary syndrome and was stable for discharge. Home Meds Active Scripts Amlodipine Besylate* (Norvasc*) 5 Mg Tablet, 5 MG PO BID for 30 Days, TAB Prov:JAMAL DIAL NP 08/11/14 Warfarin Sodium* (Coumadin*) 5 Mg Tablet, 5 MG PO DAILY for 5 Days, TAB Prov:JAMAL DIAL NP 08/11/14 Valsartan* (Diovan*) 160 Mg Tab, 160 MG PO DAILY for 30 Days Prov:JAMAL DIAL NP 08/11/14 Sitagliptin* (Januvia*) 100 Mg Tab, 100 MG PO AC BREAKFAST for 30 Days Prov:JAMAL DIAL NP 08/11/14 Nateglinide* (Starlix*) 60 Mg Tab, 60 MG PO AC MEALS for 30 Days Prov:JAMAL DIAL NP 08/11/14 [Metformin Hcl] 500 MG TAB No Conflict Check, 1000 MG PO WITH BREAKFAST DINNE for 30 Days, TAB Prov:JAMAL DIAL NP 08/11/14 Meclizine Hcl* (Antivert*) 25 Mg Tab, 25 MG PO TID Y for DIZZINESS, #20 Prov:JAMAL DIAL NP 08/11/14 Hydrocodone Bit/Acetaminophen (Anexsia 5-325 Mg Tablet) 1 Tab Tab, 1 TAB PO Q4H Y for PAIN LEVEL 4-6, #30 Prov:JAMAL DIAL NP 08/11/14 Atorvastatin Calcium* (Atorvastatin Calcium*) 20 Mg Tab, 40 MG PO HS for 30 Days Prov:JAMAL DIAL NP 08/11/14 Amiodarone Hcl* (Amiodarone Hcl*) 200 Mg Tablet, 200 MG PO DAILY for 30 Days, TAB Prov:JAMAL DIAL NP 08/11/14 Amiodarone Hcl* (Cordarone*) 200 Mg Tab, 200 MG PO BID for 3 Days, TAB Prov:JAMAL DIAL NP 08/11/14 Aspirin (Aspirin) 81 Mg Chew, 81 MG PO DAILY for 30 Days Prov:JAMAL DIAL NP 08/11/14 Reported Medications Zolpidem Tartrate* (Zolpidem Tartrate*) 5 Mg Tablet, 5 MG PO HS Y, TAB 07/26/14 Pantoprazole* (Protonix*) 40 Mg Tablet.dr, 40 MG PO DAILY, TAB 07/26/14 Pending Labs Laboratory Tests Test 11/09/16 17:28 11/09/16 21:31 11/10/16 07:42 11/10/16 11:38 Bedside Glucose 98mg/dL (70-220) 127mg/dL (70-220) 130mg/dL (70-220) 217mg/dL (70-220) WILDER HASKINS Nov 10, 2016 12:15
--- NOTE | 2016-11-10 13:28 | PN ---
DATE: 11/09/2016 SUBJECTIVE: Follow up on chest pain, hypertension, diabetes. The patient reported that her chest d iscomfort was better with Protonix. The patient denied any nausea, vomiting. No reported diaphores is. No reported shortness of breath. No reported fever or chills. No reported bleeding from any s ite. PHYSICAL EXAMINATION: GENERAL: The patient is conscious, awake, alert. VITAL SIGNS: Temperature 98.2, pulse 72, respirations 19, blood pressure 129/58, O2 saturation 99% on room air. HEENT: Atraumatic, normocephalic. Conjunctivae and lids normal. Oropharynx clear. NECK: Supple. No mass or thyromegaly. CHEST: Fairly clear. No use of accessory muscles. CARDIOVASCULAR: S1, S2 normal. No murmur, gallop, or rub. ABDOMEN: Soft, nondistended, nontender. Bowel sounds present. EXTREMITIES: No leg edema. NEUROLOGIC: The patient is awake, alert, fairly oriented with no gross focal deficits. LABORATORY DATA: Done on 11/09/2016 revealed WBC 7.3, hemoglobin .5, platelets 235. Sodium 13 7, potassium 4.4, BUN 12, creatinine 0.6. IMPRESSION AND PLAN: 1. Atypical chest pain, probably related to gastroesophageal reflux disease. Continue Protonix. T he patient has ruled out for myocardial infarction. Waiting for final recommendation from Dr. Burkett. The patient's echo result is pending. 2. Diabetes mellitus. Blood sugars reviewed, stable. Continue metformin, Starlix and Tradjenta. 3. Hypertension. Blood pressure is reasonably controlled. Continue Norvasc 5. Dyslipidemia. Continue Lipitor. 6. Continue Lovenox for deep venous thrombosis prophylaxis. Further recommendations depend on patient's hospital course Dr. Burkett from cardiac standpoint. Dictated By: RENAE DAHL/JUAN LUIS Conf#: [id number] DID#: [id number]
== END 2016-11-10 13:34 | disposition home or self-care (01) | DRG 313 ==
LOC: E/R 23:44 → TEL 11-08 06:00
PROVIDERS: ADMIT Internal Medicine; ATTEND Internal Medicine
DX: R07.89 Other chest pain (principal); I25.2 Old myocardial infarction; E87.1 Hypo-osmolality and hyponatremia; I48.2 Chronic atrial fibrillation; E11.9 Type 2 diabetes mellitus without complications; I25.10 Atherosclerotic heart disease of native coronary artery without angina pectoris; K21.9 Gastro-esophageal reflux disease without esophagitis; E78.5 Hyperlipidemia, unspecified; I10 Essential (primary) hypertension; Z79.01 Long term (current) use of anticoagulants; Z79.4 Long term (current) use of insulin; Z95.1 Presence of aortocoronary bypass graft
CPT/HCPCS: 36415; 71010; 80048; 82550; 82553; 82962; 83735; 84100; 84484; 85025; 85610; 85730; 90686; 93005; 93306; 96372; 96374; J0360; J1650; J1815

== ENCOUNTER 2018-12-16 10:30 | Inpatient (IN) | payer OTHER ==
[~2018-12-16] VITALS: Ht 154.9 cm; Wt 69.0 kg
[~2018-12-16 10:30] MED LIST changes: -AMIO200T2 PO; +AMIO200T4 PO; +ASPI-831 PO; -ASPI81TA3 PO; +SITA100T11 PO; -SITA100T8 PO; +WARF5TAB PO; -WARF5TAB72 PO; -ZOLP5TAB6 PO; +ZOLP5TAB7 PO
[2018-12-16] MEDS ORDERED: ASPIRIN 325 MG TAB PO STA (11:19)
[2018-12-16] MEDS ORDERED: FUROSEMIDE 40 MG INJ IV STA (11:19)
[2018-12-16] MEDS ORDERED: NITROGLYCERIN 2% 1 GM OINT PKT TD STA (11:19)
[2018-12-16] MEDS ORDERED: METO-319 PO (11:52)
[2018-12-16] MEDS ORDERED: AMLO2.5T78 PO (11:52)
[2018-12-16] MEDS ORDERED: ATOR40TA68 PO (11:53)
[2018-12-16] MEDS ORDERED: ASPI-817 PO (11:53)
[2018-12-16] MEDS ORDERED: SITA100T11 PO (11:53)
[2018-12-16] MEDS ORDERED: METF500T24 PO (11:54)
[2018-12-16] MEDS ORDERED: GLIP5TAB13 PO (11:54)
[2018-12-16] MEDS ORDERED: IBUP-1542 PO (11:55)
[2018-12-16] MEDS ORDERED: GLIP1TAB5 PO (12:09)
[2018-12-16] MEDS ORDERED: DONE5TAB7 PO (12:10)
--- NOTE | 2018-12-16 13:31 | ERD ---
ER Documentation Chief Complaint Chief Complaint INTERMITTENT CHEST PAIN, SOB, AP X2 WEEKS HPI 78-year-old female who presents to the emergency room complaining of chest pain and shortness of breath. The patient has a history of CABG and has noted several weeks of chest pressure and discomfort as well as dyspnea on exertion. The symptoms are worse when laying flat with mild associated bilateral lower extremity edema. She notes that the pain does radiate to the upper abdomen but denies any significant abdominal pain, nausea vomiting or diarrhea. Only mild chest discomfort currently 1 out of 10. During the patient's encounter translation services were utilized Language: [Croatian] Source: [in person] ROS All systems reviewed and are negative except as per history of present illness. Medications Home Meds Reported Medications Donepezil* (Donepezil*) 5 Mg Tablet, 5 MG PO DAILY, #30 TAB 12/16/18 Glipizide/Metformin HCl (Glipizide-Metformin 2.5-500 mg) 1 Each Tablet, 1 EACH PO BID, TAB TAKE 2TAB-QAM AND 1TAB-QPM 12/16/18 Ibuprofen* (Ibuprofen*) 600 Mg Tablet, 600 MG PO NEEDED, TAB 12/16/18 Atorvastatin* (Atorvastatin*) 40 Mg Tablet, 40 MG PO QHS, #30 TAB 12/16/18 Sitagliptin* (Januvia*) 100 Mg Tablet, 100 MG PO DAILY, #30 TAB 12/16/18 Aspirin* (Aspirin* EC) 81 Mg Tablet.dr, 81 MG PO DAILY, TAB 12/16/18 Amlodipine Besylate* (Amlodipine Besylate*) 2.5 Mg Tablet, 2.5 MG PO BID, #30 TAB 12/16/18 Metoprolol Succinate* (Toprol XL*) 50 Mg Tab.er.24h, 50 MG PO DAILY, #30 TAB 12/16/18 Discontinued Reported Medications Metformin Hcl* (Metformin Hcl*) 500 Mg Tablet, 1000 MG PO BID, #90 TAB 12/16/18 Glipizide* (Glipizide*) 5 Mg Tablet, 10 MG PO AC BREAKFAST, TAB 12/16/18 Zolpidem Tartrate* (Zolpidem Tartrate*) 5 Mg Tablet, 5 MG PO HS PRN, TAB 07/26/14 Pantoprazole* (Protonix*) 40 Mg Tablet.dr, 40 MG PO DAILY, TAB 07/26/14 Discontinued Scripts Amlodipine Besylate* (Norvasc*) 5 Mg Tablet, 5 MG PO BID for 30 Days, TAB Prov:JAMAL DIAL [employer] 08/11/14 Warfarin Sodium* (Coumadin*) 5 Mg Tablet, 5 MG PO DAILY for 5 Days, TAB Prov:JAMAL DIAL NP 08/11/14 Valsartan* (Diovan*) 160 Mg Tab, 160 MG PO DAILY for 30 Days Prov:JAMAL DIAL NP 08/11/14 Sitagliptin* (Januvia*) 100 Mg Tab, 100 MG PO AC BREAKFAST for 30 Days Prov:JAMAL DIAL NP 08/11/14 Nateglinide* (Starlix*) 60 Mg Tab, 60 MG PO AC MEALS for 30 Days Prov:JAMAL DIAL NP 08/11/14 [Metformin Hcl] 500 MG TAB No Conflict Check, 1000 MG PO WITH BREAKFAST DINNE for 30 Days, TAB Prov:JAMAL DIAL NP 08/11/14 Meclizine Hcl* (Antivert*) 25 Mg Tab, 25 MG PO TID PRN for DIZZINESS, #20 Prov:JAMAL DIAL NP 08/11/14 Hydrocodone Bit/Acetaminophen (Anexsia 5-325 Mg Tablet) 1 Tab Tab, 1 TAB PO Q4H PRN for PAIN LEVEL 4-6, #30 Prov:JAMAL DIAL NP 08/11/14 Atorvastatin Calcium* (Atorvastatin Calcium*) 20 Mg Tab, 40 MG PO HS for 30 Days Prov:JAMAL DIAL NP 08/11/14 Amiodarone Hcl* (Amiodarone Hcl*) 200 Mg Tablet, 200 MG PO DAILY for 30 Days, TAB Prov:JAMAL DIAL NP 08/11/14 Amiodarone Hcl* (Cordarone*) 200 Mg Tab, 200 MG PO BID for 3 Days, TAB Prov:JAMAL DIAL NP 08/11/14 Aspirin (Aspirin) 81 Mg Chew, 81 MG PO DAILY for 30 Days Prov:JAMAL DIAL NP 08/11/14 Allergies Allergies: Coded Allergies: No Known Allergy (Unverified , 12/16/18) PMhx/Soc History of Surgery: Yes (CABG) Anesthesia Reaction: No Hx Neurological Disorder: No Hx Respiratory Disorders: No Hx Cardiac Disorders: No (Afib, HTN) Hx Psychiatric Problems: No Hx Miscellaneous Medical Probl: Yes (DM ) Hx Alcohol Use: No Hx Substance Use: No Hx Tobacco Use: No Smoking Status: Never smoker FmHx Family History: No diabetes Physical Exam Vitals Vital Signs Date Temp Pulse Resp B/P (MAP) Pulse Ox O2 O2 Flow FiO2 Time Delivery Rate 12/16/18 68 18 146/62 99 Nasal 2.0 12:54 (90) Cannula 12/16/18 67 18 153/63 98 Nasal 2.0 11:33 (93) Cannula 12/16/18 Nasal 2 11:00 Cannula 12/16/18 98.7 68 24 163/79 90 10:46 (107) Physical Exam General: Well developed, well nourished, no acute distress Head: Normocephalic, atraumatic. Eyes: Pupils equally reactive, EOM intact ENT: Moist mucous membranes Neck: Supple, no lymphadenopathy Respiratory: Rales at the bases bilaterally, no respiratory distress Cardiovascular: RRR, no murmurs, rubs, or gallops Abdominal: Soft, non-tender, non-distended, no peritoneal signs : Deferred MSK: Scant bilateral lower extremity pitting edema, no unilateral swelling, 5/5 strength Neurologic: Alert and oriented, moving all extremities, normal speech, no focal weakness, no cerebellar signs Skin: No rash Psych: Normal mood Result Diagram: 12/16/18 1100 12/16/18 1100 Results 24 hrs Laboratory Tests Test 12/16/18 11:00 White Blood Count 10.9 10^3/ul Red Blood Count 3.58 10^6/ul Hemoglobin 10.6 g/dl Hematocrit 32.0 % Mean Corpuscular Volume 89.4 fl Mean Corpuscular Hemoglobin 29.6 pg Mean Corpuscular Hemoglobin Concent 33.1 g/dl Red Cell Distribution Width 13.6 % Platelet Count 228 10^3/UL Mean Platelet Volume 9.0 fl Immature Granulocytes % 0.400 % Neutrophils % 69.2 % Lymphocytes % 16.6 % Monocytes % 11.2 % Eosinophils % 2.3 % Basophils % 0.3 % Nucleated Red Blood Cells % 0.0 /100WBC Immature Granulocytes # 0.040 10^3/ul Neutrophils # 7.6 10^3/ul Lymphocytes # 1.8 10^3/ul Monocytes # 1.2 10^3/ul Eosinophils # 0.3 10^3/ul Basophils # 0.0 10^3/ul Nucleated Red Blood Cells # 0.0 10^3/ul Sodium Level 135 mmol/L Potassium Level 4.2 mmol/L Chloride Level 99 mmol/L Carbon Dioxide Level 25 mmol/L Anion Gap 11 Blood Urea Nitrogen 15 mg/dl Creatinine 0.55 mg/dl Est Glomerular Filtrat Rate mL/min mL/min Glucose Level 242 mg/dl Calcium Level 9.3 mg/dl Troponin I < 0.012 ng/ml B-Type Natriuretic Peptide 2100 PG/ML Current Medications Medications Dose Sig/Juliette Start Time Status Last (Trade) Ordered Route PRN Stop Time Admin Dose Reason Admin Aspirin 325 mg ONCE STAT 12/16/18 DC 12/16/18 (Aspirin) PO 11:19 12/16/18 11:29 11:20 1 inch ONCE STAT 12/16/18 DC 12/16/18 Nitroglycerin TD 11:19 12/16/18 11:29 11:20 (Nitroglyceri n 2% Oint) Furosemide 40 mg ONCE STAT 12/16/18 DC 12/16/18 (Lasix) IV 11:19 12/16/18 11:29 11:20 Procedures/MDM EKG, MONITORS, & DIAGNOSTIC IMAGING: EKG: I reviewed and interpreted a 12-lead EKG. Rhythm: Normal sinus rhythm ST Changes: No contiguous ST segment elevations T waves: No contiguous T wave inversions Impression: No evidence of acute cardiac ischemia Repeat EKG: EKG: I reviewed and interpreted a 12-lead EKG. Rhythm: Normal sinus rhythm ST Changes: No contiguous ST segment elevations T waves: No contiguous T wave inversions Impression: No evidence of acute cardiac ischemia Chest x-ray: I reviewed and interpreted a 1 view of the chest Mediastinum: No enlargement Cardiac silhouette: cardiomegaly Airspace: Pulmonary edema bilaterally Bones: No evidence of fracture PROCEDURES: None LAB INTERPRETATION: * Consistent with CHF showing elevated BNP but negative troponin MEDICAL DECISION MAKING: The patient's history, physical exam and clinical presentation is concerning for possible cardiogenic etiology and acute coronary syndrome. Patient likely has signs and symptoms consistent with decompensated congestive heart failure. Based on the patient's clinical exam and history and risk factors, I have a much lower clinical concern for pulmonary embolism, acute aortic dissection, pneumot horax, pneumonia, cardiac tamponade HEART Score: Greater than 3 MACE Rate: Upwards of 16.6% Shared Decision Making: We had a conversation regarding risk stratification, MACE rate, and the risks, benefits, alternatives of disposition planning options. Disposition planning: Inpatient hospitalization ER COURSE: * The patient has evidence of volume overload and was provided with nitroglycerin and Lasix for preload and afterload reduction with improved symptomatology. No indication for positive pressure ventilation or nitroglycerin drip. Aspirin provided as well. * No evidence of acute cardiac ischemia. CONSULTATION: None DISPOSITION PLAN: Telemetry admission for management of chest pain to rule out acute coronary syndrome, serial enzymes, risk stratification and consideration of provocative testing CONSULTATION: Accepting care team and consultations: I discussed the current laboratory data, diagnostic imaging and emergency care provided. Admitting team: Dr. Renteria notified via [employer] Admitting team indication: Insurance directed Departure Diagnosis: Primary Impression: Chest pain Chest pain type: unspecified Qualified Codes: R07.9 - Chest pain, unspecified Additional Impression: Acute exacerbation of CHF (congestive heart failure) Heart failure type: unspecified Qualified Codes: I50.9 - Heart failure, unspecified Condition: Stable DIANA SHARP MD Dec 16, 2018 13:31
[2018-12-16] MEDS ORDERED: ONDANSETRON 4 MG INJ IV PRN ×2 (14:00→17:30)
[2018-12-16] MEDS ORDERED: ACETAMINOPHEN 325 MG TAB PO PRN (14:00)
[2018-12-16 16:39] VITALS: Ht 154.9 cm; Wt 69.0 kg
[2018-12-16 16:48] VITALS: PULSE 64
--- NOTE | 2018-12-16 17:04 | HP ---
Date/Time of Note Date/Time of Note DATE: 12/16/18 TIME: 16:58 Assessment/Plan VTE Prophylaxis Pharmacological prophylaxis: LMWH Lines/Catheters IV Catheter Type (from Nrsg): Saline Lock Assessment/Plan Hospital Course 1. Acute respiratory distress secondary to pulmonary edema No history of CHF 2D echo Cardiology consultation Lasix IV No indication for supplemental oxygen at this time BNP in a.m. 2. Chest pain with left arm pain Pain is atypical and was exacerbated by movement of the left arm, pain has resolved No evidence of ACS at this time with normal troponin EKG Cardiology consultation Follow-up on troponins Continue cardiac meds 3. Diabetes Hold p.o. meds Scheduled insulin and sliding scale 4. Dementia Continue Aricept 5. History of CABG Continue cardiac meds Prophylaxis: Lovenox Result Diagram: 12/16/18 1100 12/16/18 1100 Results 24hrs Laboratory Tests Test 12/16/18 11:00 White Blood Count 10.9 #H Red Blood Count 3.58 L Hemoglobin 10.6 L Hematocrit 32.0 L Mean Corpuscular Volume 89.4 Mean Corpuscular Hemoglobin 29.6 Mean Corpuscular Hemoglobin Concent 33.1 Red Cell Distribution Width 13.6 Platelet Count 228 Mean Platelet Volume 9.0 Immature Granulocytes % 0.400 Neutrophils % 69.2 Lymphocytes % 16.6 Monocytes % 11.2 H Eosinophils % 2.3 Basophils % 0.3 Nucleated Red Blood Cells % 0.0 Immature Granulocytes # 0.040 H Neutrophils # 7.6 H Lymphocytes # 1.8 Monocytes # 1.2 H Eosinophils # 0.3 Basophils # 0.0 Nucleated Red Blood Cells # 0.0 Sodium Level 135 Potassium Level 4.2 Chloride Level 99 Carbon Dioxide Level 25 Anion Gap 11 Blood Urea Nitrogen 15 Creatinine 0.55 Est Glomerular Filtrat Rate mL/min Glucose Level 242 H Calcium Level 9.3 Troponin I < 0.012 B-Type Natriuretic Peptide 2100 H HPI/ROS Admit Date/Time Admit Date/Time Dec 16, 2018 at 13:33 Hx of Present Illness Patient is a 78-year-old female with a history of coronary disease status post CABG in 2013, diabetes, hypertension, dyslipidemia. Patient presents with 2 weeks of worsening shortness of breath with exertion, abdominal discomfort for 2 weeks and chest pain with left arm pain that began this morning. Patient states that the pain has resolved and was exacerbated by movement of the left arm. Patient's main complaints time is shortness of breath and generalized weakness. Patient denies any PND or orthopnea. Last echo 2017 showed preserved EF, in the ER chest x-ray showed mild pulmonary edema with an elevated BNP. EKG showed no signs of ischemia and troponin was normal. ROS Constitutional: fatigue Eyes: no complaints ENT: no complaints Respiratory: shortness of breath Cardiovascular: no complaints Gastrointestinal: no complaints Genitourinary: no complaints Musculoskeletal: no complaints Skin: no complaints Neurologic: no complaints Endocrine: no complaints Lymphatic: no complaints Psychological: no complaints, nl mood/affect Immunologic: no complaints PMH/Family/Social Past Medical History As per HPI Medications Current Medications Ondansetron HCl (Zofran Inj) 4 mg ER BRIDGE PRN IV NAUSEA/VOMITING; Start 12/16/18 at 14:00; Stop 12/17/18 at 13:59 Acetaminophen (Tylenol Tab) 650 mg ER BRIDGE PRN PO .MILD PAIN 1-3 OR TEMP; Start 12/16/18 at 14:00; Stop 12/17/18 at 13:59 Coded Allergies: No Known Allergy (Unverified , 12/16/18) Past Surgical History Past Surgical Hx: coronary bypass surgery Family History Significant Family History: no pertinent family hx Social History Alcohol Use: rarely Smoking Status: Never smoker Drug Use: none Exam/Review of Systems Vital Signs Vitals Vital Signs Date Temp Pulse Resp B/P (MAP) Pulse Ox O2 O2 Flow FiO2 Time Delivery Rate 12/16/18 98.1 62 18 128/56 100 Nasal 16:11 (80) Cannula 12/16/18 2.0 15:00 Exam Constitutional: alert, oriented Respiratory: clear to auscultation Cardiovascular: regular rate and rhythm Gastrointestinal: soft; No distended Musculoskeletal: nl extremities to inspection VANESSA SCANLON Dec 16, 2018 17:04
[2018-12-16] MEDS ORDERED: HYDROCODONE/APAP (5/325) TAB PO PRN (17:30)
[2018-12-16] MEDS ORDERED: NITROGLYCERIN (SL) 0.4 MG TAB SL PRN (17:30)
[2018-12-16] MEDS ORDERED: DOCUSATE SODIUM 100 MG CAP PO PRN (17:30)
[2018-12-16] MEDS ORDERED: morphine 2 MG INJ IV PRN (17:30)
[2018-12-16] MEDS ORDERED: DEXTROSE 50% 50 ML SYRINGE IV PRN ×2 (17:30)
[2018-12-16] MEDS ORDERED: GLUCOSE GEL 15 GRAM TUBE BUCCAL PRN (17:30)
[2018-12-16] MEDS ORDERED: GLUCOSE GEL 15 GRAM TUBE PO PRN ×2 (17:30)
[2018-12-16] MEDS ORDERED: GLUCAGON 1 MG INJ IM PRN (17:30)
[2018-12-16] MEDS ORDERED: NACL 0.9% 3 ML SYG IV SCH (17:30)
[2018-12-16 19:47] VITALS: BP 152/69; PULSE 76; RESP 18
[2018-12-16 20:00] VITALS: PULSE 79
[2018-12-16] MEDS: ATORVASTATIN 40 MG TAB PO SCH (20:09)
[2018-12-16] MEDS: AMLODIPINE 2.5 MG TAB PO SCH (20:09)
[2018-12-16] MEDS: INSULIN GLARGINE [LANTus] (100 UNITS/ML) SYG SC SCH (20:12)
[2018-12-16] MEDS: INSULIN ASPART [NOVOLOG] 3 ML PEN SC SCH (20:15)
[2018-12-16] MEDS: GUAIFENESIN/DM 5ML CUP PO PRN (21:20)
[2018-12-17] VITALS (11 sets, daily range): BP systolic 120–153; BP diastolic 59–69; PULSE 56–69; RESP 18–20
[2018-12-17] MEDS: ZOLPIDEM 5 MG TAB PO PRN ×2 (00:57→20:54)
[2018-12-17] MEDS: ACCU-CHEK XX SCH (02:00)
[2018-12-17] MEDS: ACETAMINOPHEN 325 MG TAB PO PRN ×2 (06:09→17:43)
[2018-12-17] MEDS: ENOXAPARIN 40 MG/0.4 ML SYG SC SCH (08:14)
[2018-12-17] MEDS: INSULIN ASPART [NOVOLOG] 3 ML PEN SC SCH ×7 (08:14→20:05)
[2018-12-17] MEDS: DONEPEZIL 5 MG TAB PO SCH (08:18)
[2018-12-17] MEDS: ASPIRIN (EC) 81 MG TAB PO SCH (08:19)
[2018-12-17] MEDS: METOPROLOL (XL) 50 MG TAB PO SCH (08:19)
[2018-12-17] MEDS: AMLODIPINE 2.5 MG TAB PO SCH ×2 (08:19→20:00)
[2018-12-17] MEDS ORDERED: FUROSEMIDE 40 MG INJ IV SCH (09:00)
--- NOTE | 2018-12-17 15:09 | PN ---
Date/Time of Note Date/Time of Note DATE: 12/17/18 TIME: 15:07 Assessment/Plan VTE Prophylaxis Risk score (from Ns)>0 risk: 3 SCD applied (from Nsg): Yes Pharmacological prophylaxis: LMWH Lines/Catheters IV Catheter Type (from Nrsg): Saline Lock Urinary Cath still in place: No Assessment/Plan Hospital Course 1. Acute respiratory distress secondary to pulmonary edema No history of CHF 2D echo pending Cardiology consultation obtained Lasix IV Continue supplemental oxygen 2. Chest pain with left arm pain Pain is atypical and was exacerbated by movement of the left arm, pain has resolved No evidence of ACS with normal troponins and EKG Cardiology consultation obtained Continue cardiac meds 3. Diabetes Hold p.o. meds Scheduled insulin and sliding scale 4. Dementia Continue Aricept 5. History of CABG Continue cardiac meds Prophylaxis: Lovenox DC planning: Follow-up on cardiology consultation and 2D echo, anticipate DC home tomorrow Result Diagram: 12/17/18 0707 12/17/18 0553 Results 24hrs Laboratory Tests Test 12/16/18 17:43 12/16/18 18:09 12/16/18 20:08 12/16/18 23:01 Bedside Glucose 156 273 H Creatine Kinase 40 37 Creatine Kinase 0.6 0.8 Index Creatinine Kinase MB < 0.22 0.31 (Mass) Troponin I < 0.012 0.017 Test 12/17/18 01:42 12/17/18 05:53 12/17/18 07:07 12/17/18 07:40 Bedside Glucose 242 H 169 Sodium Level 135 Potassium Level 4.4 Chloride Level 96 L Carbon Dioxide Level 30 Anion Gap 9 Blood Urea Nitrogen 17 Creatinine 0.55 Est Glomerular Filtrat Rate mL/min Glucose Level 156 Hemoglobin A1c 7.1 H Calcium Level 9.1 Phosphorus Level 4.3 Magnesium Level 1.9 B-Type Natriuretic 1950 H Peptide Triglycerides Level 84 Cholesterol Level 113 LDL Cholesterol, 65 Calculated HDL Cholesterol 31 L Cholesterol/HDL 3.6 Ratio White Blood Count 10.2 Red Blood Count 3.23 L Hemoglobin 9.6 L Hematocrit 29.0 L Mean Corpuscular 89.8 Volume Mean Corpuscular 29.7 Hemoglobin Mean Corpuscular 33.1 Hemoglobin Concent Red Cell 13.5 Distribution Width Platelet Count 231 Mean Platelet Volume 9.6 Immature 0.500 H Granulocytes % Neutrophils % 67.5 Lymphocytes % 15.4 Monocytes % 11.1 H Eosinophils % 5.2 Basophils % 0.3 Nucleated Red Blood 0.0 Cells % Immature 0.050 H Granulocytes # Neutrophils # 6.9 Lymphocytes # 1.6 Monocytes # 1.1 H Eosinophils # 0.5 Basophils # 0.0 Nucleated Red Blood 0.0 Cells # Test 12/17/18 12:02 Bedside Glucose 244 H Subjective 24 Hr Interval Summary Respiratory: shortness of breath Exam/Review of Systems Exam Vitals Vital Signs Date Temp Pulse Resp B/P (MAP) Pulse Ox O2 O2 Flow FiO2 Time Delivery Rate 12/17/18 59 13:57 12/17/18 98.9 20 127/60 98 11:44 (82) 12/17/18 Nasal 2.0 08:00 Cannula Intake and Output 12/16/18 12/16/18 12/17/18 1515:00 23:00 07:00 IntakeIntake Total 680 ml BalanceBalance 680 ml Constitutional: alert, oriented Respiratory: clear to auscultation Cardiovascular: regular rate and rhythm Gastrointestinal: soft; No distended Musculoskeletal: nl extremities to inspection Results Results 24hrs Laboratory Tests Test 12/16/18 17:43 12/16/18 18:09 12/16/18 20:08 12/16/18 23:01 Bedside Glucose 156 273 H Creatine Kinase 40 37 Creatine Kinase 0.6 0.8 Index Creatinine Kinase MB < 0.22 0.31 (Mass) Troponin I < 0.012 0.017 Test 12/17/18 01:42 12/17/18 05:53 12/17/18 07:07 12/17/18 07:40 Bedside Glucose 242 H 169 Sodium Level 135 Potassium Level 4.4 Chloride Level 96 L Carbon Dioxide Level 30 Anion Gap 9 Blood Urea Nitrogen 17 Creatinine 0.55 Est Glomerular Filtrat Rate mL/min Glucose Level 156 Hemoglobin A1c 7.1 H Calcium Level 9.1 Phosphorus Level 4.3 Magnesium Level 1.9 B-Type Natriuretic 1950 H Peptide Triglycerides Level 84 Cholesterol Level 113 LDL Cholesterol, 65 Calculated HDL Cholesterol 31 L Cholesterol/HDL 3.6 Ratio White Blood Count 10.2 Red Blood Count 3.23 L Hemoglobin 9.6 L Hematocrit 29.0 L Mean Corpuscular 89.8 Volume Mean Corpuscular 29.7 Hemoglobin Mean Corpuscular 33.1 Hemoglobin Concent Red Cell 13.5 Distribution Width Platelet Count 231 Mean Platelet Volume 9.6 Immature 0.500 H Granulocytes % Neutrophils % 67.5 Lymphocytes % 15.4 Monocytes % 11.1 H Eosinophils % 5.2 Basophils % 0.3 Nucleated Red Blood 0.0 Cells % Immature 0.050 H Granulocytes # Neutrophils # 6.9 Lymphocytes # 1.6 Monocytes # 1.1 H Eosinophils # 0.5 Basophils # 0.0 Nucleated Red Blood 0.0 Cells # Test 12/17/18 12:02 Bedside Glucose 244 H Medications Medication Current Medications IV Flush (NS 3 ml) 3 ml PER PROTOCOL IV ; Start 12/16/18 at 17:30 Ondansetron HCl (Zofran Inj) 4 mg Q6H PRN IV NAUSEA/VOMITING; Start 12/16/18 at 17:30 Acetaminophen (Tylenol Tab) 650 mg Q6H PRN PO .PAIN 1-3 OR TEMP Last administered on 12/17/18at 06:09; Admin Dose 650 MG; Start 12/16/18 at 17:30 Acetaminophen/ Hydrocodone Bitart ([place] (5/325)) 1 tab Q6H PRN PO .MOD PAIN 4- 6 Last administered on 12/16/18at 19:35; Admin Dose 1 TAB; Start 12/16/18 at 17:30 Morphine Sulfate (morphine) 2 mg Q4H PRN IV .SEVERE PAIN 7-10; Start 12/16/18 at 17:30 Docusate Sodium (Colace) 100 mg Q12H PRN PO .CONSTIPATION; Start 12/16/18 at 17:30 Zolpidem Tartrate (Ambien) 5 mg QHS PRN PO .INSOMNIA Last administered on 12/17/18at 00:57; Admin Dose 5 MG; Start 12/16/18 at 17:30 Enoxaparin Sodium (Lovenox) 40 mg DAILY SC Last administered on 12/17/18at 08:14; Admin Dose 40 MG; Start 12/17/18 at 09:00 Nitroglycerin (Nitroglycerin (Sl Tab) 0.4 Mg) 1 tab Q5M PRN SL CHEST PAIN; Start 12/16/18 at 17:30 Amlodipine Besylate (Norvasc) 2.5 mg BID PO Last administered on 12/17/18at 08:19; Admin Dose 2.5 MG; Start 12/16/18 at 21:00 Aspirin (Halfprin) 81 mg DAILY PO Last administered on 12/17/18at 08:19; Admin Dose 81 MG; Start 12/17/18 at 09:00 Atorvastatin Calcium (Lipitor) 40 mg QHS PO Last administered on 12/16/18at 20:09; Admin Dose 40 MG; Start 12/16/18 at 21:00 Donepezil HCl (Aricept) 5 mg DAILY PO Last administered on 12/17/18at 08:18; Admin Dose 5 MG; Start 12/17/18 at 09:00 Metoprolol Succinate (Toprol Xl) 50 mg DAILY PO Last administered on 12/17/18at 08:19; Admin Dose 50 MG; Start 12/17/18 at 09:00 Diagnostic Test (Pha) (Accu-Chek) 1 ea 02 XX ; Start 12/17/18 at 02:00 Insulin Glargine (Lantus) 10 units DAILY@2000 SC Last administered on 12/16/18at 20:12; Admin Dose 10 UNITS; Start 12/16/18 at 20:00 Insulin Aspart (Novolog Insulin Pen) 3 unit WITH MEALS SC Last administered on 12/17/18at 12:08; Admin Dose 3 UNIT; Start 12/17/18 at 07:55 Insulin Aspart (Novolog Insulin Pen) NOVOLOG *MILD* ALGORITHM WITH MEALS BEDTIME SC Last administered on 12/17/18at 12:08; Admin Dose 3 UNIT; Start 12/16/18 at 21:00 Miscellaneous Information 1 ea NOTE XX ; Start 12/16/18 at 17:30 Glucose (Glutose) 15 gm Q15M PRN PO DECREASED GLUCOSE; Start 12/16/18 at 17:30 Glucose (Glutose) 22.5 gm Q15M PRN PO DECREASED GLUCOSE; Start 12/16/18 at 17:30 Dextrose (D50w Syringe) 25 ml Q15M PRN IV DECREASED GLUCOSE; Start 12/16/18 at 17:30 Dextrose (D50w Syringe) 50 ml Q15M PRN IV DECREASED GLUCOSE; Start 12/16/18 at 1 7:30 Glucagon (Glucagen) 1 mg Q15M PRN IM DECREASED GLUCOSE; Start 12/16/18 at 17:30 Glucose (Glutose) 15 gm Q15M PRN BUCCAL DECREASED GLUCOSE; Start 12/16/18 at 17:30 Guaifenesin/ Dextromethorphan (Robitussin Dm Liquid Cup) 5 ml Q4H PRN PO coughing Last administered on 12/16/18at 21:20; Admin Dose 5 ML; Start 12/16/18 at 21:00; Stop 12/17/18 at 20:59 Furosemide (Lasix) 40 mg BID DIURETICS IV ; Start 12/17/18 at 18:00 VANESSA SCANLON Dec 17, 2018 15:09
--- NOTE | 2018-12-17 16:07 | CONS ---
DATE OF ADMISSION: 12/16/2018 DATE OF CONSULTATION: 12/17/2018 TYPE OF CONSULTATION: Cardiology. REASON FOR CONSULTATION: Congestive heart failure exacerbation, chest pain. REQUESTING PHYSICIAN: Mirian Renteria MD HISTORY OF PRESENT ILLNESS: Ms. Olmos is a very pleasant 78-year-old female with history of coronary artery disease, status post coronary artery bypass graft surgery, diabetes mellitus, dementia, hyper tension, dyslipidemia, who presented with complaints of shortness of breath and substernal chest pain . The patient's chest pain is somewhat poorly described as a stabbing to pressure-like sensation occ urring at rest with associated shortness of breath with minimal exertion. Initially upon arrival, te mperature was 98.7, blood pressure 160/79, pulse 68, respiratory rate 24, satting 98%. The patient's labs revealed white blood cell count of 10.9, hemoglobin 10.6, platelet count of 228, sodium of 135, potassium 4.2, creatinine 0.5, BUN 15, troponin negative, BNP of 2100. The patient's chest x-ray re vealed mild cardiomegaly, pulmonary vascular congestion, bilateral perihilar and lower lobe infiltrat es. The patient's electrocardiogram revealed sinus rhythm, rate of 64, normal axis, left ventricular pressure with voltage criteria with inferior T-wave inversion. The patient was subsequently admitte d to the floor and since admit to the floor, has had negative troponins x3. Denies ongoing chest gege n. Does have some shortness of breath. PAST MEDICAL HISTORY: As above in HPI. MEDICATIONS CURRENTLY IN HOSPITAL: 1. Lovenox 40 mg subcutaneously daily. 2. Aspirin 81 mg daily. 3. Aricept 5 mg daily. 4. Toprol-XL 50 mg daily. 5. Lasix 20 mg IV daily. 6. Insulin sliding scale. 7. Norvasc 2.5 mg p.o. b.i.d. 8. Lantus. 9. [place] p.r.n. 10. Tylenol p.r.n. 11. Morphine p.r.n. 12. Sublingual nitroglycerin p.r.n. ALLERGIES: NO KNOWN DRUG ALLERGIES. SOCIAL HISTORY: No current tobacco, EtOH or illicit drug use. FAMILY HISTORY: No history of sudden cardiac or early CAD. REVIEW OF SYSTEMS: As above in HPI. CONSTITUTIONAL: No fevers, chills. PULMONARY: Shortness of breath. CARDIOVASCULAR: No current chest pain. GASTROINTESTINAL: No vomiting. GENITOURINARY: No hematuria. MUSCULOSKELETAL: Degenerative joint disease. PSYCHIATRIC: The patient denies depression. NEUROLOGIC: No documented history of CVA. PHYSICAL EXAMINATION VITAL SIGNS: Temperature of 98.2, blood pressure most recently 127/60, pulse 64, respiratory rate 20 , satting 98%. GENERAL: The patient is alert, awake, in no acute distress. NECK: JVP is approximately 9 to 10 cm of water. CHEST: Decreased breath sounds at bases bilaterally with bibasilar crackles. HEART: Regular rate and rhythm. Normal S1, S2, I/ systolic murmur, nondisplaced PMI. ABDOMEN: Positive bowel sounds, soft. EXTREMITIES: No significant pitting edema, 1+ pulses bilateral posterior tibial. LABORATORY DATA: Most recently from today, sodium 135, potassium 4.4, creatinine 0.5, BUN 17. BNP 1 950. White blood cell count 10.2, hemoglobin 9.6, platelet count 231. IMAGING STUDIES: As above in HPI. No further imaging studies for my review at this time. ELECTROCARDIOGRAM: As above in HPI. No further electrocardiograms for my review at this time. IMPRESSION: 1. Congestive heart failure exacerbation, question systolic versus diastolic, likely acute on chroni c. 2. Chest pain, somewhat atypical at this time with negative troponins x3, now has resolved. 3. History of coronary artery disease, status post coronary artery bypass graft surgery. 4. Hypertension, reasonable control. 5. Dyslipidemia. 6. Diabetes mellitus. 7. Dementia. RECOMMENDATIONS: 1. At this time, we would maintain the patient on telemetry monitoring to follow rhythm and rates cl osely. 2. Continue the patient's current Toprol-XL and Norvasc controlling blood pressure and heart rate. 3. We would continue the patient's statin and adjust it according to a fasting lipid liver panel to be checked. 4. Continue the patient's aspirin for prophylaxis against cardiovascular events. 5. Continue the patient's Lasix diuresis which I will increase today to increase the patient's diure sis. 6. We will follow up patient's 2D echo to further assess patient's ejection fraction, wall motion or rule out any major valve abnormalities. 7. We will follow for recurrent episodes of chest pain. If the patient does not have improved chest pain, then likely the patient will be admitted for stress testing. Thank you for allowing me to take part in the care of this patient. I will continue to follow her ve ry closely with you with further recommendations will be made as the patient progresses through her [facility] clinical course. Dictated By: RADHA COLEMAN/JUAN LUIS Conf#: [id number] DID#: [id number] CC: MIRIAN RENTERIA MD;*End*
[2018-12-17] MEDS: GUAIFENESIN/DM 5ML CUP PO PRN (17:42)
[2018-12-17] MEDS: FUROSEMIDE 40 MG INJ IV SCH (17:45)
[2018-12-17] MEDS: ATORVASTATIN 40 MG TAB PO SCH (20:00)
[2018-12-17] MEDS: INSULIN GLARGINE [LANTus] (100 UNITS/ML) SYG SC SCH (20:08)
[2018-12-17] MEDS ORDERED: INSULIN GLARGINE [LANTus] (100 UNITS/ML) SYG SC SCH (21:00)
--- NOTE | 2018-12-17 23:56 | RADRPT ---
Echocardiogram Report Patient Name: JAMAR MARISCALPatient ID: [id number] : [id number] (78y 6m)Study Date: 12/17/2018 8:56:36 AM Gender: FAccession #: [id number] Tech: Ankur Haddad [facility] Location: [address] Ref.Physician: VANESSA SCANLON Height(Cm): BSA: Weight(Kg): Quality: AdequateAccount #: Procedures: Echocardiographic Report: Transthoracic echocardiogram with complete 2D, M-Mode, and doppler examination. Indications: Evaluate Left Ventricular function. Measurements: 2D/M Mode Doppler Measurement Value Normal Range Measurement Value Normal Range LVIDd 2D 4.5 [ 3.8 - 5.2 ] cm AV Peak Maxx 1.7 [ 100.0 - 170.0 ] cm/sec LVIDs 2D 3.3 [ 2.2 - 3.5 ] cm AV Peak PG 12.0 [ 2.0 - 9.0 ] mmHg LVPWd 2D 0.9 [ 0.6 - 0.9 ] cm LVOT Peak Maxx 1.0 [ 70.0 - 110.0 ] cm/sec IVSd 2D 0.8 [ 0.6 - 0.9 ] cm LVOT Peak PG 4.0 [ 2.0 - 6.0 ] mmHg IVS/LVPW 2D 0.9 ratio MV E Peak Maxx 1.4 [ 60.0 - 130.0 ] cm/sec AoR Diam 2D 2.3 [ 2.3 - 3.1 ] cm MV Decel Time 183 [ 104 - 258 ] msec LA/Ao 2D 2 ratio Lat E` Maxx 0.1 [ 10.0 - 15.0 ] cm/sec LA Dimen 2D 4.0 [ 2.7 - 3.8 ] cm TR Peak Maxx 3.3 [ 100.0 - 280.0 ] cm/sec TR Peak PG 45.0 mmHg RVSP 48.0 [ 10.0 - 36.0 ] mmHg Findings: Left Ventricle: Lower limits of normal systolic function. Normal left ventricular cavity size. Left ventricular wall thickness upper limits of normal. Ejection fraction is visually estimated at 50 %. Tissue Doppler/Mitral Doppler indices are consistent with pseudonormalization with mildly elevated left atrial pressure (Stage II diastolic dysfunction). Right Ventricle: Normal right ventricular size. Normal right ventricular systolic function. Left Atrium: The left atrium is normal in size. Right Atrium: The right atrium is normal in size. Mitral Valve: Mild mitral leaflet calcification. Mild mitral annular calcification. Mild mitral valve regurgitation. Aortic Valve: No hemodynamically significant aortic stenosis by doppler. Aortic cusps appear mildly calcified. Tricuspid Valve: Normal appearance of the tricuspid valve. Estimated peak PA systolic pressure 48 mmHg. There is moderate tricuspid regurgitation. Pericardium: Normal pericardium with no significant pericardial effusion. Aorta: Normal aortic root. IVC: Normal size and normal respiratory collapse consistent with normal right atrial pressure. Conclusions: Lower limits of normal systolic function. Normal left ventricular cavity size. Left ventricular wall thickness upper limits of normal. Ejection fraction is visually estimated at 50 %. Tissue Doppler/Mitral Doppler indices are consistent with pseudonormalization with mildly elevated left atrial pressure (Stage II diastolic dysfunction). Mild mitral leaflet calcification. Mild mitral annular calcification. Mild mitral valve regurgitation. Normal appearance of the tricuspid valve. Estimated peak PA systolic pressure 48 mmHg. There is moderate tricuspid regurgitation. Electronically Signed By: Presley Sinha 2018-12-17 23:55:41 PDT
[2018-12-18] VITALS (7 sets, daily range): BP systolic 138–149; BP diastolic 60–63; PULSE 58–72; RESP 18–19
[2018-12-18] MEDS: ACCU-CHEK XX SCH (02:00)
[2018-12-18] MEDS: FUROSEMIDE 40 MG INJ IV SCH (05:31)
[2018-12-18] MEDS: METOPROLOL (XL) 50 MG TAB PO SCH (08:13)
[2018-12-18] MEDS: AMLODIPINE 2.5 MG TAB PO SCH (08:14)
[2018-12-18] MEDS: DONEPEZIL 5 MG TAB PO SCH (08:14)
[2018-12-18] MEDS: ASPIRIN (EC) 81 MG TAB PO SCH (08:14)
[2018-12-18] MEDS: INSULIN ASPART [NOVOLOG] 3 ML PEN SC SCH ×4 (08:21→11:58)
[2018-12-18] MEDS: ENOXAPARIN 40 MG/0.4 ML SYG SC SCH (08:21)
[2018-12-18] MEDS ORDERED: FURO-110 PO (10:50)
--- NOTE | 2018-12-18 10:50 | PDOCDIS ---
Discharge Instructions CONDITION [id number] Patient Condition: [id number] Good HOME CARE INSTRUCTIONS: [id number] Special Diet: [id number] DIABETIC, LOW SALT ACTIVITY: [id number] Activity Restrictions: [id number] No Restrictions FOLLOW UP/APPOINTMENTS Follow-up Plan FOLLOW UP WITH YOUR PCP IN 1-2 WEEKS VANESSA SCANLON Dec 18, 2018 10:50
--- NOTE | 2018-12-18 13:18 | CONS ---
Assessment/Plan Assessment/Plan Hospital Course (Demo Recall) IMPRESSION: 1. Congestive heart failure exacerbation, question systolic versus diastolic, likely acute on chronic. 2. Chest pain, somewhat atypical at this time with negative troponins x3, now has resolved. 3. History of coronary artery disease, status post coronary artery bypass graft surgery. 4. Hypertension, reasonable control. 5. Dyslipidemia. 6. Diabetes mellitus. 7. Dementia. Recc: -Tele -serial ecg's -Contineu asa/BB -Contineu lasix and transition to PO -oK for d/c from cardiac stndpoint with outpatient f/u and stress testing Consultation Date/Type/Reason Admit Date/Time Dec 16, 2018 at 13:33 Initial Consult Date 12/17/18 Type of Consult Cardiology Reason for Consultation CHF Requesting Provider: VANESSA SCANLON Date/Time of Note DATE: 12/18/18 TIME: 13:12 Exam/Review of Systems Vital Signs Vitals Vital Signs Date Temp Pulse Resp B/P (MAP) Pulse Ox O2 O2 Flow FiO2 Time Delivery Rate 12/18/18 98.1 61 18 138/62 91 11:09 (87) 12/18/18 Nasal 07:41 Cannula 12/18/18 2.0 04:12 Intake and Output 12/17/18 12/17/18 12/18/18 1515:00 23:00 07:00 IntakeIntake Total 850 ml 1200 ml OutputOutput Total 1800 ml BalanceBalance -950 ml 1200 ml Exam Exam Review of Systems: CONSTITUTIONAL: No fevers, chills. PULMONARY: No sob CARDIOVASCULAR: No chest pain/palpitations GASTROINTESTINAL: No nausea/vomiting. GENITOURINARY: No hematuria/dysuria. MUSCULOSKELETAL: No myagias/arthalgias. PSYCHIATRIC: The patient denies depression. NEUROLOGIC: No weakness Constitutional: alert, oriented Psych: no complaints Head: normocephalic ENMT: mucosa pink and moist Neck: supple, jvd (9 cm water) Respiratory: diminished breath sounds (at bases/B) Cardiovascular: regular rate and rhythm Gastrointestinal: soft Musculoskeletal: muscle tone (normal) Extremities: edema (none) Neurological: other (No focal deficits) Labs Result Diagram: 12/17/18 0707 12/17/18 0553 Results 24hrs Laboratory Tests Test 12/17/18 17:30 12/17/18 20:01 12/18/18 01:51 12/18/18 07:13 Bedside Glucose 191 308 H 155 Triglycerides Level 93 Cholesterol Level 116 LDL Cholesterol, 66 Calculated HDL Cholesterol 31 L Cholesterol/HDL 3.7 Ratio Test 12/18/18 08:12 12/18/18 11:41 Bedside Glucose 236 H 208 Medications Medications Current Medications IV Flush (NS 3 ml) 3 ml PER PROTOCOL IV ; Start 12/16/18 at 17:30 Ondansetron HCl (Zofran Inj) 4 mg Q6H PRN IV NAUSEA/VOMITING; Start 12/16/18 at 17:30 Acetaminophen (Tylenol Tab) 650 mg Q6H PRN PO .PAIN 1-3 OR TEMP Last administered on 12/17/18at 17:43; Admin Dose 650 MG; Start 12/16/18 at 17:30 Acetaminophen/ Hydrocodone Bitart ([place] (5/325)) 1 tab Q6H PRN PO .MOD PAIN 4- 6 Last administered on 12/16/18at 19:35; Admin Dose 1 TAB; Start 12/16/18 at 17:30 Morphine Sulfate (morphine) 2 mg Q4H PRN IV .SEVERE PAIN 7-10; Start 12/16/18 at 17:30 Docusate Sodium (Colace) 100 mg Q12H PRN PO .CONSTIPATION; Start 12/16/18 at 17:30 Zolpidem Tartrate (Ambien) 5 mg QHS PRN PO .INSOMNIA Last administered on 12/17/18at 20:54; Admin Dose 5 MG; Start 12/16/18 at 17:30 Enoxaparin Sodium (Lovenox) 40 mg DAILY SC Last administered on 12/18/18at 08:21; Admin Dose 40 MG; Start 12/17/18 at 09:00 Nitroglycerin (Nitroglycerin (Sl Tab) 0.4 Mg) 1 tab Q5M PRN SL CHEST PAIN; Start 12/16/18 at 17:30 Amlodipine Besylate (Norvasc) 2.5 mg BID PO Last administered on 12/18/18at 08:14; Admin Dose 2.5 MG; Start 12/16/18 at 21:00 Aspirin (Halfprin) 81 mg DAILY PO Last administered on 12/18/18at 08:14; Admin Dose 81 MG; Start 12/17/18 at 09:00 Atorvastatin Calcium (Lipitor) 40 mg QHS PO Last administered on 12/17/18at 20:00; Admin Dose 40 MG; Start 12/16/18 at 21:00 Donepezil HCl (Aricept) 5 mg DAILY PO Last administered on 12/18/18at 08:14; Admin Dose 5 MG; Start 12/17/18 at 09:00 Metoprolol Succinate (Toprol Xl) 50 mg DAILY PO Last administered on 12/18/18at 08:13; Admin Dose 50 MG; Start 12/17/18 at 09:00 Diagnostic Test (Pha) (Accu-Chek) 1 ea 02 XX ; Start 12/17/18 at 02:00 Insulin Glargine (Lantus) 10 units DAILY@2000 SC Last administered on 12/17/18at 20:08; Admin Dose 10 UNITS; Start 12/16/18 at 20:00 Insulin Aspart (Novolog Insulin Pen) 3 unit WITH MEALS SC Last administered on 12/18/18at 11:58; Admin Dose 3 UNIT; Start 12/17/18 at 07:55 Insulin Aspart (Novolog Insulin Pen) NOVOLOG *MILD* ALGORITHM WITH MEALS BEDTIME SC Last administered on 12/18/18at 11:57; Admin Dose 2 UNIT; Start 12/16/18 at 21:00 Miscellaneous Information 1 ea NOTE XX ; Start 12/16/18 at 17:30 Glucose (Glutose) 15 gm Q15M PRN PO DECREASED GLUCOSE; Start 12/16/18 at 17:30 Glucose (Glutose) 22.5 gm Q15M PRN PO DECREASED GLUCOSE; Start 12/16/18 at 17:30 Dextrose (D50w Syringe) 25 ml Q15M PRN IV DECREASED GLUCOSE; Start 12/16/18 at 17:30 Dextrose (D50w Syringe) 50 ml Q15M PRN IV DECREASED GLUCOSE; Start 12/16/18 at 17:30 Glucagon (Glucagen) 1 mg Q15M PRN IM DECREASED GLUCOSE; Start 12/16/18 at 17:30 Glucose (Glutose) 15 gm Q15M PRN BUCCAL DECREASED GLUCOSE; Start 12/16/18 at 17:30 Furosemide (Lasix) 40 mg BID DIURETICS IV Last administered on 12/18/18at 05:31; Admin Dose 40 MG; Start 12/17/18 at 18:00 Insulin Glargine (Lantus) 15 units DAILY@2000 SC ; Start 12/18/18 at 20:00 RADHA VEGA Dec 18, 2018 13:18
--- NOTE | 2018-12-18 15:15 | DS ---
Date/Time of Note Date/Time of Note DATE: 12/18/18 TIME: 15:09 Discharge Summary Admission/Discharge Info Admit Date/Time Dec 16, 2018 at 13:33 Discharge Date/Time December 18, 2018 Discharge Diagnosis 1. Acute systolic and diastolic heart failure-now stable Patient has no prior history of CHF 2D echo shows an EF of 50% with diastolic heart failure Cardiology consultation appreciated, outpatient follow-up for further workup Status post Lasix IV DC with Lasix p.o. No indication for further supplemental oxygen 2. Chest pain with left arm pain Pain is atypical and was exacerbated by movement of the left arm, pain has resolved No evidence of ACS with normal troponins and EKG Cardiology consultation appreciated Continue cardiac meds 3. Diabetes Continue home meds 4. Dementia Continue Aricept 5. History of CABG Continue cardiac meds Patient Condition: Good Hospital Course Patient is a 78-year-old female with a history of coronary disease status post CABG in 2013, diabetes, hypertension, dyslipidemia. Patient presents with 2 weeks of worsening shortness of breath with exertion, abdominal discomfort for 2 weeks and chest pain. ACS was ruled out and echo showed EF 50% with diastolic heart failure. Patient's shortness of breath and discomfort did resolve with diuresis and patient was weaned off supplemental oxygen. Patient was seen by cardiology and further workup to be done as an outpatient. Patient was stable for DC, on the day of discharge patient's vitals, labs and physical exam are stable. Home Meds Active Scripts Furosemide* (Lasix*) 20 Mg Tablet, 20 MG PO DAILY, #60 TAB Prov:VANESSA SCANLON 12/18/18 Reported Medications Donepezil* (Donepezil*) 5 Mg Tablet, 5 MG PO DAILY, #30 TAB 12/16/18 Glipizide/Metformin HCl (Glipizide-Metformin 2.5-500 mg) 1 Each Tablet, 1 EACH PO BID, TAB TAKE 2TAB-QAM AND 1TAB-QPM 12/16/18 Ibuprofen* (Ibuprofen*) 600 Mg Tablet, 600 MG PO NEEDED, TAB 12/16/18 Atorvastatin* (Atorvastatin*) 40 Mg Tablet, 40 MG PO QHS, #30 TAB 12/16/18 Sitagliptin* (Januvia*) 100 Mg Tablet, 100 MG PO DAILY, #30 TAB 12/16/18 Aspirin* (Aspirin* EC) 81 Mg Tablet.dr, 81 MG PO DAILY, TAB 12/16/18 Amlodipine Besylate* (Amlodipine Besylate*) 2.5 Mg Tablet, 2.5 MG PO BID, #30 TAB 12/16/18 Metoprolol Succinate* (Toprol XL*) 50 Mg Tab.er.24h, 50 MG PO DAILY, #30 TAB 12/16/18 Discontinued Reported Medications Metformin Hcl* (Metformin Hcl*) 500 Mg Tablet, 1000 MG PO BID, #90 TAB 12/16/18 Glipizide* (Glipizide*) 5 Mg Tablet, 10 MG PO AC BREAKFAST, TAB 12/16/18 Zolpidem Tartrate* (Zolpidem Tartrate*) 5 Mg Tablet, 5 MG PO HS PRN, TAB 07/26/14 Pantoprazole* (Protonix*) 40 Mg Tablet.dr, 40 MG PO DAILY, TAB 07/26/14 Discontinued Scripts Amlodipine Besylate* (Norvasc*) 5 Mg Tablet, 5 MG PO BID for 30 Days, TAB Prov:JAMAL DIAL NP 08/11/14 Warfarin Sodium* (Coumadin*) 5 Mg Tablet, 5 MG PO DAILY for 5 Days, TAB Prov:JAMAL DIAL [employer] 08/11/14 Valsartan* (Diovan*) 160 Mg Tab, 160 MG PO DAILY for 30 Days Prov:JAMAL DIAL [employer] 08/11/14 Sitagliptin* (Januvia*) 100 Mg Tab, 100 MG PO AC BREAKFAST for 30 Days Prov:JAMAL DIAL NP 08/11/14 Nateglinide* (Starlix*) 60 Mg Tab, 60 MG PO AC MEALS for 30 Days Prov:JAMAL DIAL [employer] 08/11/14 [Metformin Hcl] 500 MG TAB No Conflict Check, 1000 MG PO WITH BREAKFAST DINNE for 30 Days, TAB Prov:JAMAL DIAL NP 08/11/14 Meclizine Hcl* (Antivert*) 25 Mg Tab, 25 MG PO TID PRN for DIZZINESS, #20 Prov:JAMAL DIAL NP 08/11/14 Hydrocodone Bit/Acetaminophen (Anexsia 5-325 Mg Tablet) 1 Tab Tab, 1 TAB PO Q4H PRN for PAIN LEVEL 4-6, #30 Prov:JAMAL DIAL [employer] 08/11/14 Atorvastatin Calcium* (Atorvastatin Calcium*) 20 Mg Tab, 40 MG PO HS for 30 Days Prov:JAMAL DIAL NP 08/11/14 Amiodarone Hcl* (Amiodarone Hcl*) 200 Mg Tablet, 200 MG PO DAILY for 30 Days, TAB Prov:JAMAL DIAL NP 08/11/14 Amiodarone Hcl* (Cordarone*) 200 Mg Tab, 200 MG PO BID for 3 Days, TAB Prov:JAMAL DIAL NP 08/11/14 Aspirin (Aspirin) 81 Mg Chew, 81 MG PO DAILY for 30 Days Prov:JAMAL DIAL NP 08/11/14 Follow-up Plan FOLLOW UP WITH YOUR PCP IN 1-2 WEEKS, follow-up with cardiology Primary Care Provider Not On Staff Doctor Time spent on discharge: > 30 minutes VANESSA SCANLON Dec 18, 2018 15:15
--- NOTE | 2018-12-18 17:06 | RADRPT ---
Vent Rate: 63 bpm RR Interval: 0 msec DE Interval: 156 msec QRS Duration: 100 msec QT Interval: 374 msec QTC Interval: 382 msec P-R-T [place]: 70 - -8 - 127 degrees Sinus rhythm with premature atrial complexes Left ventricular hypertrophy with repolarization abnormality Abnormal ECG Electronically Signed By: Anibal Cheung
[2018-12-18] MEDS ORDERED: INSULIN GLARGINE [LANTus] (100 UNITS/ML) SYG SC SCH (20:00)
== END 2018-12-18 15:40 | disposition home or self-care (01) | DRG 293 ==
LOC: E/R 10:30 → TEL 13:33
PROVIDERS: ADMIT Internal Medicine; ATTEND Internal Medicine
DX: I11.0 Hypertensive heart disease with heart failure (principal); I50.41 Acute combined systolic (congestive) and diastolic (congestive) heart failure; R06.03 Acute respiratory distress; E11.8 Type 2 diabetes mellitus with unspecified complications; F03.90 Unspecified dementia, unspecified severity, without behavioral disturbance, psychotic disturbance, mood disturbance, and anxiety; I25.10 Atherosclerotic heart disease of native coronary artery without angina pectoris; D72.829 Elevated white blood cell count, unspecified; M79.602 Pain in left arm; E78.5 Hyperlipidemia, unspecified; M19.90 Unspecified osteoarthritis, unspecified site; R07.89 Other chest pain; Z95.1 Presence of aortocoronary bypass graft; Z79.82 Long term (current) use of aspirin; Z79.4 Long term (current) use of insulin
CPT/HCPCS: 36415; 71045; 80048; 80061; 81001; 82550; 82553; 82962; 83036; 83735; 83880; 84100; 84484; 85025; 93005; 93306; 96374; 97116; 97161; J1650; J1815; J1940